=== PATIENT | female | born 2000 | race Caucasian/White ===

== ENCOUNTER 2023-10-26 19:16 | Outpatient (CLI) | payer MEDICAID, SELFPAY ==
[2023-10-26 19:32] VITALS: BP 134/90; PULSE 92; RESP 16; TEMP 36.8; O2SAT 95
--- NOTE | 2023-10-26 20:22 | PC.OBNST ---
NST Note NST Note Start: 10/26/23 19:27 Freq: ONCE Status: Active Protocol: Document 10/26/23 20:20 RRP (Rec: 10/26/23 20:22 RRP [id number]) NST Note 1 Para (# of births) 0 EDC 01/26/24 Gestational Age In Weeks & Days 26 Weeks & 6 Days High Risk Factors High Blood Pressure - Preexisting Patient Presented with Complaint(s) of Decreased movement,Other Other Complaints Pt had a panic attack and was concerned about baby Reactive Yes Appropriate for Gestational Age Yes NIRAV Nascimento RN Date 10/26/23 Reactive Yes Appropriate for Gestational Age Yes NIRAV Pinedo Date 10/26/23 OB NST charge Yes Complete NST Note via Write Note Yes The provider's electronic signature indicates the NST is reactive/appropriate for gestational age. *Note to provider: If an addendum is required, open the patient's chart and click on the note under the Nurse/Allied Health tab.
== END 2023-10-26 20:15 | disposition home or self-care (01) ==
LOC: OB OUT 19:16 → OB 19:16
PROVIDERS: Visit Provider Surgery
DX: O10.912 Unspecified pre-existing hypertension complicating pregnancy, second trimester (principal); O36.8120 Decreased fetal movements, second trimester, not applicable or unspecified; Z3A.26 26 weeks gestation of pregnancy
CPT/HCPCS: 59025; G0463

== ENCOUNTER 2023-12-24 16:17 | Outpatient (CLI) | payer BC, SELFPAY ==
[2023-12-24] VITALS (8 sets, daily range): BP systolic 123–135; BP diastolic 74–84; PULSE 88–97; RESP 14; TEMP 36.4; O2SAT 92–98
--- NOTE | 2023-12-24 17:17 | PC.OBNST ---
NST Note NST Note Start: 12/24/23 16:22 Freq: ONCE Status: Active Protocol: Document 12/24/23 16:22 [facility] (Rec: 12/24/23 17:17 [facility] Desktop) NST Note 1 Para (# of births) 0 EDC 12/26/23 Gestational Age In Weeks & Days 39 Weeks & 5 Days High Risk Factors High Blood Pressure - Preexisting Patient Presented with Complaint(s) of Decreased movement, Headache Other Complaints Pt in for DFM, headache and vision changes at 1430 today, BP normotensive, ESCAMILLA gone and vision normal Reactive Yes Appropriate for Gestational Age Yes NIRAV Morrison RN Date 12/24/23 Reactive Yes Appropriate for Gestational Age Yes NIRAV Kothari RN Date 12/24/23 OB NST charge Yes Complete NST Note via Write Note Yes The provider's electronic signature indicates the NST is reactive/appropriate for gestational age. *Note to provider: If an addendum is required, open the patient's chart and click on the note under the Nurse/Allied Health tab.
== END 2023-12-24 17:10 | disposition home or self-care (01) ==
LOC: OB CLI 16:19 → OB 16:21
PROVIDERS: PCP Family Medicine; Visit Provider Family Medicine
DX: O10.913 Unspecified pre-existing hypertension complicating pregnancy, third trimester (principal); O36.8130 Decreased fetal movements, third trimester, not applicable or unspecified; Z3A.39 39 weeks gestation of pregnancy
CPT/HCPCS: 59025; G0463

== ENCOUNTER 2024-01-16 12:30 | Outpatient (RCR) | payer BC, SELFPAY | END 2024-05-15 23:59 | disposition home or self-care (01) | PROVIDERS: PCP Family Medicine; Visit Provider Family Medicine | DX: O99.891 Other specified diseases and conditions complicating pregnancy (principal); M53.3 Sacrococcygeal disorders, not elsewhere classified; Z51.89 Encounter for other specified aftercare | CPT/HCPCS: 97110; 97112; 97140; 97161; 97530; 97535 ==

== ENCOUNTER 2024-01-20 15:57 | Inpatient (IN) | payer BC, SELFPAY ==
[2024-01-20] VITALS (8 sets, daily range): BP systolic 126–139; BP diastolic 60–84; PULSE 76–96; RESP 16; TEMP 36.4–36.8; O2SAT 98–100; BMI 38.0
--- NOTE | 2024-01-20 17:01 | PM.OBHPLI ---
OB - H&P: HPI Labor/Induction History of Present Illness Date Seen: 01/20/24 Chief Complaint: IOL for cHTN Chief complaint: IOL for CHTN Narrative: Malathi Fraser is a 23 year old female 1 para 0 at 39.1 weeks gestation by LMP consistent with 8wk US, who presents with IOL for chronic hypertension. Baseline labs in with elevated AST/ALT, improved on repeat (57/44) at 34.3wk gestation. She was started on labetalol 50mg BID for DBP 92, 91. Growth US on 12/31/2023 EFW 49th percentile. Doing well. No headache, vision changes, edema or RUQ pain. No loss of fluid or vaginal bleeding. Labs Blood type: B (+) positive Rubella: immune RPR/VDLR: nonreactive GBS status: negative HBsAG: negative Narrative: - Last Hgb: 11.9 - One Hour Glucose: 105 - Hep C: nonreactive - HIV: nonreactive - Treponema: negative - Gonorrhea: negative - Chlamydia: negative Review of Systems Status of ROS: Reports: 10 or more systems reviewed and unremarkable except as noted in History and below Narrative: Denies headache, visual changes, facial edema, epigastric/RUQ pain, N/V, dysuria, or diarrhea. Meds Home Medications and Allergies Home Medications ?Medication ?Instructions ?Recorded ?Confirmed ?Type aspirin 81 mg chewable tablet 81 mg PO DAILY 10/26/23 01/20/24 History cholecalciferol (vitamin D3) 25 1,000 unit PO DAILY 10/26/23 01/20/24 History mcg (1,000 unit) capsule vit 168-iron 27 mg-folic 1 cap PO 10/26/23 History acid 800 mcg-omega3 235 mg capsule (One-A-Day -1) labetalol 100 mg tablet 100 mg PO BID 01/20/24 01/20/24 History Allergies Allergy/AdvReac Type Severity Reaction Status Date / Time No Known Allergies Allergy Verified 01/20/24 16:48 OB - H&P: Exam Physical Exam: Vital signs: Temp Pulse Resp BP Pulse Ox 98.2 F 88 16 135/84 99 01/20/24 16:31 01/20/24 16:31 01/20/24 16:31 01/20/24 16:31 01/20/24 16:30 Narrative: Gen: alert, oriented, NAD Abd: gravid, nontender, soft to palpation between contractions Ext: warm, dry, without edema bilaterally Vaginal exam: 0 cm / 50 % / -2 / soft / posterior / vertex Membranes: intact FHT: Baseline: 145 bpm Variability: moderate Acceleration: present Decelerations: one variable noted Hoskins: Rare contractions every 7-16 min OB - Problem Based A/P Additional Plan (1) with 39 completed weeks gestation: Problem details: complicated by chronic hypertension and baseline elevation of AST/ALT. Status: Acute (2) Chronic hypertension affecting : Problem details: Stable cHTN, on labetalol 50mg BID with elevated AST/ALT in early . Status: Acute Plan: Continue home labetalol, repeat pre-E labs. No pre-eclampsia at this time. Plan #1- IOL for chronic hypertension - Admit & anticipate . - IOL with vaginal cytotec, transition to cytotec if [place] is favorable - Continuous monitoring: Category 1 tracing - Analgesia: prn - GBS status negative: prophylaxis not indicated # - Rh positive- RhoGAM unecessary - Baby [place] [place]
[2024-01-20 17:34] LABS: Basophils Absolute Auto 0.04 K/uL (0.00-0.30); Basophils Percent Auto 0.4 % (0.0-3.0); Eosinophils Absolute Auto 0.14 K/uL (0.00-0.50); Eosinophils Percent Auto 1.3 % (0.0-7.0); Hematocrit 35.1 % (33.0-51.0); Hemoglobin* 11.4 gm/dL (12.0-16.0); Immature Granulocytes Abs Auto 0.04 K/uL (0.00-0.30); Immature Granulocytes Pct Auto 0.4 %; Lymphocytes Absolute Auto 4.11 K/uL (0.90-2.90); Lymphocytes Percent Auto 39.2 % (20-44); Mean Corpuscular HGB Conc 33 gm/dL (32-36); Mean Corpuscular Hemoglobin 29 pg (26-34); Mean Corpuscular Volume 91 fL (80-100); Monocytes Percent Auto 4.4 % (0.0-11.0); Neutrophils Percent Auto 54.3 % (42.0-72.0); Platelet Count* 330 K/uL (140-440); RDW Coefficient of Variation % 13.7 % (11.5-15.5); Red Blood Count 3.88 m/uL (4.00-5.20); White Blood Count* 10.49 K/uL (4.50-11.00)
[2024-01-20 17:36] LABS: Slide Review Reflex No
[2024-01-20 17:52] LABS: Alanine Aminotransferase* 44 U/L (4-35); Aspartate Amino Transferase* 73 U/L (12-35); Blood Urea Nitrogen* 12 mg/dL (5-24); Creatinine* 0.4 mg/dL (0.5-1.5); Est. Creatinine Clearance* 196.83; Estimated Glomerular Filt Rate 143 ml/min
[2024-01-20] MEDS: miSOPROStoL 25 MCG/0.25 TABLET VAGINAL ×2 (18:00→21:04)
[2024-01-20 18:16] LABS: Total Protein Urine 9 mg/dL
[2024-01-20 18:17] LABS: Creatinine Urine 110.7 mg/dL; Protein Creatinine Ratio Urine 0.08 (0-0.19)
[2024-01-20] MEDS: LABETALOL HCL 100 MG TABLET 50 MG PO (21:04)
[2024-01-21] VITALS (216 sets, daily range): BP systolic 104–190; BP diastolic 53–108; PULSE 20–111; RESP 16–20; TEMP 36.4–37; O2SAT 82–100
[2024-01-21] MEDS: miSOPROStoL 25 MCG/0.25 TABLET VAGINAL (00:03)
[2024-01-21] MEDS: LABETALOL HCL 100 MG TABLET 50 MG PO ×2 (05:43→21:03)
[2024-01-21 05:49] LABS: Hematocrit 37.2 % (33.0-51.0); Hemoglobin* 12.3 gm/dL (12.0-16.0); Mean Corpuscular HGB Conc 33 gm/dL (32-36); Mean Corpuscular Hemoglobin 30 pg (26-34); Mean Corpuscular Volume 91 fL (80-100); Platelet Count* 309 K/uL (140-440); Red Blood Count 4.11 m/uL (4.00-5.20); White Blood Count* 10.68 K/uL (4.50-11.00)
[2024-01-21 05:50] LABS: Slide Review Reflex No
[2024-01-21 06:03] LABS: Alanine Aminotransferase* 46 U/L (4-35); Aspartate Amino Transferase* 60 U/L (12-35); Blood Urea Nitrogen* 12 mg/dL (5-24); Creatinine* 0.4 mg/dL (0.5-1.5); Est. Creatinine Clearance* 196.83; Estimated Glomerular Filt Rate 143 ml/min
--- NOTE | 2024-01-21 06:59 | P.OBPN_ITS ---
Subjective Time Seen by Provider: 06:50 Date Seen: 01/21/24 Narrative: Pt seen in routine center rounds this morning. She 23yo G1 at 39 2/7 wks being induced for chronic hypertension which has been controlled on labetalol 50mg bid. She has received 3 doses cytotec PV, most recent around midnight. Contractions currently increasing per patient, rates 6-7/10. Per RN and chart review, BP was elevated 0516 at 165/105 and repeated 4min later was 137/108. pt reports those were right during ctx. Next repeat 0530 141/79. The overnight MD had RN give her morning oral labetalol early at 0544. BP at 0548 was 178/106, RN reports this was right after cervical check and ctx. repeat was 157/105 and reports bp's since < 160/110 except one at 0647 186/98 but cuff was half on elbow and not appropriate position, cuff adjusted and repeat was 155/74. pt asymptomatic from BP standpoint. Objective Vital Signs: Last Vital Signs Temp 97.6 F 01/21/24 06:53 Pulse 63 01/21/24 06:53 Resp 18 01/21/24 06:53 BP 155/74 H 01/21/24 06:53 Pulse Ox 100 01/20/24 22:09 Pelvic Exam Comments: per RN, at 0542 4/50/-3 Contractions Monitor mode: External Contraction Frequency: q1-4min, most q1-2min Contraction intensity: Moderate Assessment Assessment: induction ongoing Status: Category l Heart Rate Baseline: 145 Manufacturing Operator Variability: Moderate (6-25) Monitor Accelerations: Present Monitor Decelerations: None Plan Plan: A/P: 23yo G1 at 39 2/7 wks being induced for chronic hypertension which has been controlled on labetalol 50mg bid. She has received 3 doses cytotec PV, most recent around midnight, contractions increasing 1. BP's overnight not sustained >/=15min above 160/110 so not currently meet criteria for Magnesium/IV BP meds. Will monitor closely and discussed with pt possibility of magnesium if met certain criteria. 2. Baseline elevated LFT's 1st trimester AST 79, ALT 53, repeat later in 57, 44. On admit to Center 73, 44, this morning 60, 46. Therefore stable overall. 3. GBS negative discussed plan to recheck 2 hours from last check, if changing on own, continue with expectant management, If ctxs decreasing or not changing, add pitocin per protocol. reviewed with pt, S.O. and RN. They did not have any ?'s.
[2024-01-21] MEDS: LACTATED RINGERS 1000 ML 1,000 ML 70 ML IV ×2 (08:06→19:19)
[2024-01-21] MEDS: MAGNESIUM IV 4 GM/100 ML PIGGYBACK IVPB (08:08)
[2024-01-21] MEDS: MAGNESIUM Infusion 40 GM/1,000 ML IV.SOLN IVPB (08:47)
[2024-01-21 14:24] LABS: Alanine Aminotransferase* 47 U/L (4-35); Aspartate Amino Transferase* 64 U/L (12-35); Blood Urea Nitrogen* 9 mg/dL (5-24); Creatinine* 0.4 mg/dL (0.5-1.5); Est. Creatinine Clearance* 196.83; Estimated Glomerular Filt Rate 143 ml/min
[2024-01-21 14:37] LABS: Magnesium* 4.7 mg/dL (1.5-2.6)
[2024-01-21 15:05] LABS: Hematocrit 38.2 % (33.0-51.0); Hemoglobin* 12.6 gm/dL (12.0-16.0); Mean Corpuscular HGB Conc 33 gm/dL (32-36); Mean Corpuscular Hemoglobin 30 pg (26-34); Mean Corpuscular Volume 90 fL (80-100); Platelet Count* 355 K/uL (140-440); Red Blood Count 4.26 m/uL (4.00-5.20); White Blood Count* 13.71 K/uL (4.50-11.00)
[2024-01-21 15:06] LABS: Slide Review Reflex No
[2024-01-21] MEDS: OXYTOCIN 30 unit/500 ML in NS 30 UNIT/500 ML BAG IVPB (16:04)
--- NOTE | 2024-01-21 18:21 | P.OBPN_ITS ---
Subjective Time Seen by Provider: 18:15 Date Seen: 01/21/24 Narrative: Pt breathing through contractions, lots of pressure with contractions. Wonders about pain control options. So far, tub helped her the most she says. RN reports pt was on hands on knees when BP was 190/103. RN then checked q2min BP's on Hands and Knees 155/79, 185/93, 144/77. She then moved to her side and was 128/71. No BP meds given. I noted pulse ox noted maternal oxygen 87%-99% at times. Discussed with RN. No r espiratory distress. using toe pulse ox and RN notes keeps coming off partially. Pulse ox levels documented show 87% then 99% back to back so suspect not accurate. Objective Vital Signs: Last Vital Signs Temp 98.1 F 01/21/24 18:13 Pulse 83 01/21/24 18:15 Resp 20 01/21/24 18:13 BP 143/90 H 01/21/24 18:15 Pulse Ox 93 01/21/24 18:16 Pelvic Exam Dilation (cm): 7 Effacement (%): 80 Station: -2 Comments: cervix stretchy, head not completely engaged in cervix. Contractions Monitor mode: External Contraction Frequency: q1-5min Contraction pattern: Irregular Contraction intensity: Strong/Firm Pitocin Rate (mU/min): 4 Assessment Status: Category l Heart Rate Baseline: 145 Monitor Accelerations: Present Monitor Decelerations: None Plan Plan: G1 at 39 2/7 wks gestation being admitted for chronic htn, on magnesium due to BP's in severe range. -s/p 3 cytotec, SROM's 11:45am, and now on pitocin. -Continue increase pitocin q15min per protocol discussed with RN -BP checks per protocol, not more then q5min. Pulse ox with vitals signs or if sxs. Discussed importance verifying if low as on magnesium at risk pulm edema. no appear to have currently -reviewed pain control options. she decided to get epidural -continue labs [id number]
[2024-01-21] MEDS: fentaNYL 250 MCG/5 ML inj 100 MCG EPIDURAL (19:09)
[2024-01-21] MEDS: LIDOCAINE 2% (PF) 5 ML VIAL EPIDURAL (19:10)
[2024-01-21] MEDS: ROPIVACAINE 0.2% 100 ml 100 ML 12 MG EPIDURAL (19:13)
--- NOTE | 2024-01-21 19:26 | P.ANBPRC_ITS ---
PFSH PFSH Social History What is your current living situation?: I presently have a place to live Problems where you live: no known problems In the past 12 months, utilities in danger of being shut off: no In the past 12 mos, have been you worried that your food would run out before you had money to buy more?: never true In the past 12 mos, the food you bought just didn't last and you didn't have money to buy more?: never true Smoking Status: Never smoker How often does anyone, including family, friends and others, physically hurt you : never How often does anyone, including family, friends and others, insult or talk down to you: never How often does anyone, including family, friends and others, threaten you with harm: never How often does anyone, including family, friends and others, scream or curse at you: never Meds Home Medications and Allergies Home Medications ?Medication ?Instructions ?Recorded ?Confirmed ?Type aspirin 81 mg chewable tablet 81 mg PO DAILY 10/26/23 01/20/24 History cholecalciferol (vitamin D3) 25 1,000 unit PO DAILY 10/26/23 01/20/24 History mcg (1,000 unit) capsule vit 168-iron 27 mg-folic 1 cap PO 10/26/23 History acid 800 mcg-omega3 235 mg capsule (One-A-Day -1) labetalol 100 mg tablet 100 mg PO BID 01/20/24 01/20/24 History Allergies Allergy/AdvReac Type Severity Reaction Status Date / Time No Known Allergies Allergy Verified 01/20/24 16:48 Results Labs Labs: Laboratory Results - last 24 hr 01/21/24 01/21/24 05:39 14:03 WBC 10.68 13.71 H RBC 4.11 4.26 Hgb 12.3 12.6 Hct 37.2 38.2 MCV 91 90 MCH 30 30 MCHC 33 33 Plt Count 309 355 BUN 12 9 Creatinine 0.4 L 0.4 L Estimated Creat Clear 196.83 196.83 Estimated GFR 143 143 Magnesium 4.7 H* AST 60 H 64 H ALT 46 H 47 H Vital Signs Vital Signs: Last Vital Signs Temp 98.1 F 01/21/24 18:13 Pulse 94 01/21/24 19:22 Resp 20 01/21/24 18:13 BP 126/73 01/21/24 19:22 Pulse Ox 98 01/21/24 19:23 Weight: 103.51 kg Height: 165.1 cm Anesthesia Procedures Epidural Insertion Patient Location: OB Start Time: 18:30 Stop Time: Start Date: 01/21/24 Stop Date: 01/21/24 Reason for Block: primary anesthetic Patient Position: sitting Performed By: Freedom Gamble Preanesthetic Checklist: IV checked, risks and benefits discussed, surgical consent, monitors and equipment checked, pre-op evaluation, timeout performed and anesthesia consent Prep: chlorhexidine gluconate Monitoring: blood pressure monitoring, senior software development engineer, continuous pulse oximetry and heart rate Approach: midline Vertebral Space: lumbar (1-5) Needle Type: Tuohy needle Injection Technique: continuous catheter Needle gauge: 17 Needle Length (cm): 10 cm Needle Insertion Depth (cm): 6 Catheter Gauge: 19 Catheter Type: multi-orifice Catheter at skin depth (cm): 12 Test Dose Result: negative and lidocaine 1.5% with epinephrine 1 to 200,000 Events: other
[2024-01-21 20:29] LABS: Hematocrit 38.6 % (33.0-51.0); Hemoglobin* 12.6 gm/dL (12.0-16.0); Mean Corpuscular HGB Conc 33 gm/dL (32-36); Mean Corpuscular Hemoglobin 30 pg (26-34); Mean Corpuscular Volume 91 fL (80-100); Platelet Count* 353 K/uL (140-440); Red Blood Count 4.26 m/uL (4.00-5.20); White Blood Count* 16.47 K/uL (4.50-11.00)
[2024-01-21 20:32] LABS: Slide Review Reflex No
[2024-01-21 20:37] LABS: Creatinine* 0.4 mg/dL (0.5-1.5); Est. Creatinine Clearance* 196.83; Estimated Glomerular Filt Rate 143 ml/min
[2024-01-21 20:38] LABS: Alanine Aminotransferase* 45 U/L (4-35); Aspartate Amino Transferase* 67 U/L (12-35); Blood Urea Nitrogen* 8 mg/dL (5-24)
[2024-01-21 20:45] LABS: Magnesium* 5.2 mg/dL (1.5-2.6)
--- NOTE | 2024-01-21 20:50 | PM.OBPNL ---
Subjective Time Seen by Provider: 20:19 Date Seen: 01/21/24 Narrative: pt received epidural and is comfortable. Objective Vital Signs: Last Vital Signs Temp 97.8 F 01/21/24 20:24 Pulse 94 01/21/24 20:48 Resp 16 01/21/24 20:24 BP 126/70 01/21/24 20:48 Pulse Ox 96 01/21/24 20:48 Pelvic Exam Dilation (cm): 9.5 Effacement (%): 100 Station: 0 Contractions Monitor mode: External Contraction Frequency: q1-3 Contraction pattern: Regular Contraction intensity: Strong/Firm Pitocin Rate (mU/min): 11 Assessment Assessment: active labor Station: 0 Amniotic Membrane Status: SROM Status: Category l Heart Rate Baseline: 140 Monitor Accelerations: Present Monitor Decelerations: Variable Plan Plan: Continue with expectant management, will start pushing once complete. Updated FP peds provider Dr Leon
[2024-01-21] MEDS: LIDOCAINE 1 % PF 30 ML INJECTION (22:23)
--- NOTE | 2024-01-21 23:29 | W.PM.VAGDEL1 ---
Procedure Delivery date: 01/21/24 Procedure Done: Global Procedure Details: The patient is a 23 year-old admitted on 01/20/24 at 39 Weeks, 1 Days gestation for induction due to chronic hypertension controlled on labetalol 50mg bid.? Cervical exam on admission was closed and high with membranes intact in vertex presentation.? She was not feeling any regular contractions.? heart rate monitor demonstrated a category 1 tracing.? She received 3 doses vaginal cytotec for cervical ripening. BP's were in severe range and so magnesium was started morning of 01/21/24. She appeared to be transitioning into labor. SROM occurred at 1145 on 01/21/24 with clear fluid. Labor was augmented with pitocin. ? Labor Analgesia:? Epidural ? Pitocin:? Yes ? Labor onset:? 10:15am ? Complete:? 2112 ? Pushing:? 2113 ? heart tones during second stage were 140-150's with variables with pushing. ? At 2217 a viable male infant delivered in vertex presentation over intact perineum via spontaneous vaginal delivery.? Infant was placed on maternal abdomen.? Cord was clamped and cut after a 60 second delay.? Nose and mouth were bulb suctioned.? weight 7#7oz.? 7 at 1 minute and 9 at 5 minutes.? Shoulder dystocia: no.? Nuchal cord: no. ? Active management of placenta performed. Placenta delivered spontaneously and complete at 2237 with a 3 vessel cord with large gush of blood immediately after placenta, RN performed fundal massage and reported fundus firm and no further significant bleeding appearing from uterus. ? Lacerations:? 2nd perineal midline laceration that telescoped into left inferior vaginal side wall. This laceration had persistent bleeding making repair initially difficult. 3-0 Vicryl used to repair and bleeding resolved with suturing. Area double checked and hemostatic. Superficial bilateral periurethral, hemostatic with pressure. Inferior and slightly left of urethra was small laceration with persistent bleeding and repaired with 4-0 vicryl and became hemostatic. Mother and infant were stable after delivery. ? Blood loss: EBL 400. Blood loss measurement type: EBL ? Sponge and needles counts are correct. Events: Chronic Hypertension Intrapartal Events: Labor Induction Delivery augmentation: pitocin Delivery monitor: external FHT Route of delivery: Infant Gender: Male presentation: vertex Placental Delivery Description: Spontaneous Cord Description: 3 Vessels
[2024-01-22] VITALS (26 sets, daily range): BP systolic 101–125; BP diastolic 58–85; PULSE 64–109; RESP 12–20; TEMP 36.3–36.8; O2SAT 94–100
[2024-01-22] MEDS: IBUPROFEN 600 MG TABLET PO ×4 (01:52→21:04)
[2024-01-22 02:05] LABS: Hematocrit 37.1 % (33.0-51.0); Hemoglobin* 12.1 gm/dL (12.0-16.0); Mean Corpuscular HGB Conc 33 gm/dL (32-36); Mean Corpuscular Hemoglobin 29 pg (26-34); Mean Corpuscular Volume 90 fL (80-100); Platelet Count* 383 K/uL (140-440); Red Blood Count 4.11 m/uL (4.00-5.20); White Blood Count* 20.62 K/uL (4.50-11.00)
[2024-01-22 02:09] LABS: Slide Review Reflex No
[2024-01-22 02:19] LABS: Alanine Aminotransferase* 43 U/L (4-35); Aspartate Amino Transferase* 60 U/L (12-35); Blood Urea Nitrogen* 8 mg/dL (5-24); Creatinine* 0.5 mg/dL (0.5-1.5); Est. Creatinine Clearance* 157.46; Estimated Glomerular Filt Rate 135 ml/min
[2024-01-22] MEDS: MAGNESIUM Infusion 40 GM/1,000 ML IV.SOLN IVPB (03:57)
[2024-01-22] MEDS: OXYTOCIN 30 unit/500 ML in NS 30 UNIT/500 ML BAG 300 UNIT IVPB (06:08)
[2024-01-22] MEDS: TRANEXAMIC ACID 100 MG/ML INJ 1000 MG IV (06:09)
[2024-01-22 06:17] LABS: Hemoglobin* 10.8 gm/dL (12.0-16.0); Platelet Count* 367 K/uL (140-440)
[2024-01-22] MEDS: LACTATED RINGERS 1000 ML 1,000 ML 75 ML IV ×2 (06:18→20:04)
[2024-01-22 06:25] LABS: Alanine Aminotransferase* 38 U/L (4-35); Aspartate Amino Transferase* 52 U/L (12-35); Creatinine* 0.5 mg/dL (0.5-1.5); Est. Creatinine Clearance* 157.46; Estimated Glomerular Filt Rate 135 ml/min
[2024-01-22] MEDS: CARBOPROST TROMETHAMINE 250 MCG/ML INJ IM (06:25)
[2024-01-22] MEDS: LOPERAMIDE HCL 2 MG CAPSULE 4 MG PO (06:27)
[2024-01-22] MEDS: miSOPROStoL 800 MCG/4 TABLET PR (06:31)
[2024-01-22] MEDS: fentaNYL 100 MCG/2 ML inj 50 MCG IVP ×2 (06:33→06:35)
[2024-01-22 06:55] LABS: Prothrombin Time 13.8 Seconds
[2024-01-22 06:56] LABS: Partial Thromboplastin Time* 28 Seconds (23-33)
--- NOTE | 2024-01-22 07:15 | PM.OBPNVD1 ---
OB - PN:Subj Subjective Time Seen by Provider: 07:15 Date Seen: 01/22/24 Interval history: I was called to evaluate the patient at 6:10 AM for post- hemorrhage. Patient was noted to have a large clot ~550g in her pad. I was contacted by nursing, directed to give rectal cytotec. Bleeding continued, agreed to give TXA and IV pitocin. Bleeding continued, and massive transfusion protocol was initiated. Patient also received Hemabate prior to my arrival. Upon my arrival, patient was alert and responsive, but feeling dizzy/lightheaded. BP was 1teens/80s, HR 100. 1 unit PRBC was being hung. Patient received 100 mcg of IV fentanyl, and manual exploration of the vagina was completed with return of several large clots and what appeared to be tissue/membranes. This brought QBL to ~2000 g. Subsequently fundus firm without active bleeding. Code purple was called, and OR was prepared for suction D&C. Patricia Mckenzie and Tara arrived to assume care. See OP note. OB - PN: Obj Exam Physical Exam: Vital signs: Temp Pulse Resp BP Pulse Ox O2 Del Method 97.5 F L 79 18 116/80 98 Room Air 01/22/24 02:05 01/22/24 06:46 01/22/24 06:46 01/22/24 06:46 01/22/24 06:46 01/22/24 06:46 Narrative: General appearance: Pale adult female. Alert and oriented. Lying back in hospital bed. HEENT: EOMI, no conjunctival injection or discharge. MMM. Neck: Supple. CV: Appears well-perfused Pulm: Breathing comfortably on room air. Abdomen: Soft, fundus tender. Fundus palpated at the umbilicus and firm. MSK: Moving all extremities. Ext: Warm and well-perfused. Skin: No rashes appreciated over exposed skin. Neuro: No focal deficits. OB - PN: Obj Data Labs Labs: Laboratory Results - last 24 hr 01/21/24 01/21/24 01/22/24 14:03 20:02 02:00 WBC 13.71 H 16.47 H 20.62 H RBC 4.26 4.26 4.11 Hgb 12.6 12.6 12.1 Hct 38.2 38.6 37.1 MCV 90 91 90 MCH 30 30 29 MCHC 33 33 33 Plt Count 355 353 383 INR APTT BUN 9 8 8 Creatinine 0.4 L 0.4 L 0.5 Estimated Creat Clear 196.83 196.83 157.46 Estimated GFR 143 143 135 Magnesium 4.7 H* 5.2 H* 5.0 H* AST 64 H 67 H 60 H ALT 47 H 45 H 43 H Crossmatch (AHG) 01/22/24 06:08 WBC RBC Hgb 10.8 L Hct MCV MCH MCHC Plt Count 367 INR 1.00 APTT 28 BUN Creatinine 0.5 Estimated Creat Clear 157.46 Estimated GFR 135 Magnesium AST 52 H ALT 38 H Crossmatch (AHG) See Detail OB - PN: A/P Delivery Assessment and Plan (1) with 39 completed weeks gestation: Problem details: complicated by chronic hypertension and baseline elevation of AST/ALT. S/p . Second degree laceration. Status: Acute (2) Chronic hypertension affecting : Problem details: Stable cHTN, on labetalol 50mg BID with elevated AST/ALT in early . Status: Acute (3) Severe pre-eclampsia: Problem details: Started on IV magnesium for severe range blood pressures. Status: Acute Assessment and Plan: - Continue magnesium until 24 hours post- - Post- blood pressures have been normal, continue to monitor - LFTs downtrending after delivery (4) hemorrhage: Problem details: Delayed PPH. Thought d/t retained placenta. S/p suction D&C. Status: Acute Assessment and Plan: - PROCESSING ARCHIVIST consulted - Hgb 10.8 at 0600, coags WNL - Received 2 units PRBC Plan day: 1 Plan: routine care Comments: Anticipate discharge pending clinical stablility.
[2024-01-22 07:23] LABS: Fibrinogen* 594 mg/dL (200-450)
--- NOTE | 2024-01-22 07:48 | W.ANESCHARGE ---
Anesthesia Charges Start Date/Time Anesthesia Start Date: 01/22/24 Anesthesia Start Time: 06:52 Stop Date/Time Anesthesia Stop Date: 01/22/24 Anesthesia Stop Time: 07:42 Summary Emergency: FRONT LOADER RESIDENTIAL DRIVER
--- NOTE | 2024-01-22 07:52 | P.GYNPRC_ITS ---
Procedure Note Time Seen by Provider: 07:00 Date of procedure: 01/22/24 Will [facility] bill your pro fee for this procedure?: Yes Pre-op diagnosis: Immediate hemorrhage suspected retained products of conception, CHTN with superimposed preeclampsia with severe features Post-op diagnosis: Immediate hemorrhage suspected retained products of conception, CHTN with superimposed preeclampsia with severe features Procedure: Ultrasound guided suction curettage Anesthesia: GETA Complications: None Surgeon: Cruz Pacheco MD System Configuration Specialist: Daina Mckenzie Estimated blood loss (mL): 10 Urine Output (mL): 500 Pathology: specimen obtained, sent to pathology (Endometrial curettings suspected products of conception-retained placental tissue) Condition: stable Disposition: PACU Findings: Normal external genitalia, bimanual exam: well contracted uterus of about 15- 18cm. Speculum exam: evidence of laceration repair on the left posterior vaginal wall, 2 small periurethral lacerations hemostatic. Small hematoma noted of the left vaginal wall, superficial and not expanding. Cervix dilated, no evidence of cervical laceration. Bladder was catheterized and about 50mmL of clear urine noted. Bedside ultrasound:Heterogenous endometrial lining, hyperechoic foci at the uterine fundus as well as at the anterior lower uterine segment. Procedure Description: As the incoming OB provider personal development educator today 01/22/24, I was notified by Dr. Nj Vidal (personal development educator physician until 7am today) that she had been called in to evaluate a family medicine patient who had delivered and had been identified to have a hemorrhage. Upon arrival I met Dr. Leon at OR [address] as well as Dr. Mckenzie who was about to go in the room with the bedside US. Dr. Leon gave us a sign out about the patient. We were told she had a last night 01/21/24 at around 10:30pm, she was diagnosed with Preeclampsia with severe features so she was currently receiving Magnesium Sulfate infusion. Fam [facility] provider was called in to evaluate patient after passage of a large blood clot at around 5am today, with an EBL of 2000mL so far. Dr. Leon had called cuco oleary [facility] protocol to be started. Patient was at OR and was intubated, she had just completed a bimanual exam and had passage of a large blood clot with some placental tissue noted. She had already received Cytotec, Hemabate, Oxytocin and 1 g of TXA. Patient had also received 1 unit of PRBC. Bleeding at the moment was stable and care at OR was handed off to me. Patient was noted to be under GETA and in the dorsal lithotomy position with Juan type stirrups. The patient was prepared and draped in the normal sterile fashion. An exam under anesthesia with findings as above. Her bladder was emptied with in-out catheter. A bivalved speculum was inserted in the posterior aspect of the vagina. Ring forceps utilized to grasp the anterior lip of cervix. A 12 mm suction curette was advanced to the uterine fundus under bedside ultrasound guidance. The suction was then started. The products of conception were evacuated with the curette rotating on the outward movement, multiple of these sweeps completed until bedside US confirmed a homogenous and thin endometrial lining. Utilizing 2 ring forceps the cervix was evaluated and no cervical lacerations noted. Perineal laceration, noted to be slightly superficially disrupted due to speculum manipulation and utilizing Vicryl 3-0 2 figure of 8 stitches were completed and hemostasis secured. No evidence of any expanding hematoma tissue. The patient tolerated the procedure well. Instrument and sponge counts were correct x2. Patient was taken to the PACU in a stable condition. Since it had passed an hour after her first dose of TXA, a second dose of 1g of TXA was given at OR, a second unit of PRBCs from MTP was also given at OR, we also ordered for a 1 dose of 2g of IV Ancef to be given at the start of procedure. Debrief completed and endometrial curettings as well as Dr. Leon's tissue will be sent to pathology. Labs collected at 6 am, showed a normal fibrinogen level. At this time MTP was asked to be stopped. Patient will continue with Magnesium Sulfate infusion under the care of our family medicine colleagues, will remain vigilant for any new episodes of bleeding, please notify OB if there are any significant changes.
--- NOTE | 2024-01-22 07:52 | W.ANESCHARGE ---
Anesthesia Charges Start Date/Time Anesthesia Start Date: 01/22/24 Anesthesia Start Time: 06:52 Stop Date/Time Anesthesia Stop Date: 01/22/24 Anesthesia Stop Time: 07:42 Summary Emergency: MDA
[2024-01-22] MEDS: 0.9 % SODIUM CHLORIDE 500 ML IV (08:05)
[2024-01-22 08:37] LABS: Hematocrit 34.8 % (33.0-51.0); Hemoglobin* 11.4 gm/dL (12.0-16.0); Mean Corpuscular HGB Conc 33 gm/dL (32-36); Mean Corpuscular Hemoglobin 29 pg (26-34); Mean Corpuscular Volume 90 fL (80-100); Platelet Count* 275 K/uL (140-440); Red Blood Count 3.88 m/uL (4.00-5.20); White Blood Count* 17.29 K/uL (4.50-11.00)
[2024-01-22 08:38] LABS: Slide Review Reflex No
[2024-01-22] MEDS: LABETALOL HCL 100 MG TABLET 50 MG PO ×2 (08:46→21:04)
[2024-01-22] MEDS: DOCUSATE SODIUM 100 MG CAPSULE PO (08:46)
[2024-01-22 08:53] LABS: Alanine Aminotransferase* 30 U/L (4-35); Aspartate Amino Transferase* 45 U/L (12-35); Blood Urea Nitrogen* 8 mg/dL (5-24); Creatinine* 0.4 mg/dL (0.5-1.5); Est. Creatinine Clearance* 196.83; Estimated Glomerular Filt Rate 143 ml/min
[2024-01-22 08:58] LABS: Magnesium* 4.6 mg/dL (1.5-2.6)
--- NOTE | 2024-01-22 10:12 | PM.ANPOST ---
Post Anesthesia Note Post Anesthesia Note Patient seen: Inpatient Respiratory Status: adequate Cardiovascular Status: adequate Mental Status: baseline Pain: adequate Temp: baseline Anesthetic awareness: N/A Complications: none Follow care: none
[2024-01-22 14:03] LABS: Mean Corpuscular HGB Conc 33 gm/dL (32-36); Mean Corpuscular Hemoglobin 30 pg (26-34); Mean Corpuscular Volume 89 fL (80-100); Platelet Count* 282 K/uL (140-440); Red Blood Count 3.71 m/uL (4.00-5.20); White Blood Count* 17.33 K/uL (4.50-11.00)
[2024-01-22 14:05] LABS: Slide Review Reflex No
[2024-01-22 14:42] LABS: Creatinine* 0.4 mg/dL (0.5-1.5); Est. Creatinine Clearance* 196.83; Estimated Glomerular Filt Rate 143 ml/min
[2024-01-22 14:43] LABS: Alanine Aminotransferase* 35 U/L (4-35); Aspartate Amino Transferase* 51 U/L (12-35); Blood Urea Nitrogen* 8 mg/dL (5-24)
[2024-01-22 20:06] LABS: Hematocrit 32.9 % (33.0-51.0); Hemoglobin* 10.9 gm/dL (12.0-16.0); Mean Corpuscular HGB Conc 33 gm/dL (32-36); Mean Corpuscular Hemoglobin 30 pg (26-34); Mean Corpuscular Volume 90 fL (80-100); Platelet Count* 302 K/uL (140-440); Red Blood Count 3.67 m/uL (4.00-5.20); White Blood Count* 15.58 K/uL (4.50-11.00)
[2024-01-22 20:14] LABS: Slide Review Reflex No
[2024-01-22 20:23] LABS: Alanine Aminotransferase* 40 U/L (4-35); Aspartate Amino Transferase* 68 U/L (12-35); Blood Urea Nitrogen* 8 mg/dL (5-24); Creatinine* 0.5 mg/dL (0.5-1.5); Est. Creatinine Clearance* 157.46; Estimated Glomerular Filt Rate 135 ml/min
[2024-01-22 22:01] LABS: Rapid Plasma Reagin (RPR) Non Reactive (Non Reactive)
[2024-01-22] MEDS: ACETAMINOPHEN 500 MG TABLET 1000 MG PO (22:07)
[2024-01-23] VITALS (7 sets, daily range): BP systolic 101–138; BP diastolic 65–87; PULSE 70–89; RESP 16; TEMP 36.7–37.2; O2SAT 96–99
--- NOTE | 2024-01-23 07:38 | PM.OBPNVD1 ---
OB - PN:Subj Subjective Date Seen: 01/23/24 Interval history: Doing well this morning. Bleeding significantly decreased following D&C yesterday. No dizziness or lightheadedness. Urinating without issue. Pain controlled with tylenol and ibuprofen. Cramping during but no abdominal pain otherwise. No headaches or RUQ pain. OB - PN: Obj Exam Physical Exam: Vital signs: Temp Pulse Resp BP Pulse Ox O2 Del Method 98.4 F 80 16 116/72 98 Room Air 01/23/24 05:23 01/23/24 05:23 01/23/24 05:23 01/23/24 05:23 01/23/24 05:23 01/23/24 05:23 Constitutional: Constitutional: no acute distress Routine Respiratory Exam: Respiratory: Present CTA bilaterally Routine Cardiovascular Exam: Cardiovascular: Present RRR; Absent murmur Routine Abdominal Exam: Abdominal: Present soft Fundus: Present firm OB - PN: Obj Data Labs Labs: Laboratory Results - last 24 hr 01/20/24 01/22/24 01/22/24 17:21 06:08 08:28 WBC 17.29 H RBC 3.88 L Hgb 11.4 L Hct 34.8 MCV 90 MCH 29 MCHC 33 Plt Count 275 BUN 8 Creatinine 0.4 L Estimated Creat Clear 196.83 Estimated GFR 143 Magnesium 4.6 H* AST 45 H ALT 30 RPR Screen Non Reactive Crossmatch (AHG) See Detail 01/22/24 01/22/24 13:58 19:58 WBC 17.33 H 15.58 H RBC 3.71 L 3.67 L Hgb 11.0 L 10.9 L Hct 33.0 32.9 L MCV 89 90 MCH 30 30 MCHC 33 33 Plt Count 282 302 BUN 8 8 Creatinine 0.4 L 0.5 Estimated Creat Clear 196.83 157.46 Estimated GFR 143 135 Magnesium AST 51 H 68 H ALT 35 40 H RPR Screen Crossmatch (AHG) OB - PN: A/P Delivery Assessment and Plan (1) with 39 completed weeks gestation: Problem details: complicated by chronic hypertension and baseline elevation of AST/ALT. S/p . Second degree laceration. Status: Acute (2) Chronic hypertension affecting : Problem details: Stable cHTN, on labetalol 50mg BID with elevated AST/ALT in early . Status: Acute (3) Severe pre-eclampsia: Problem details: Started on IV magnesium for severe range blood pressures. Status: Acute (4) hemorrhage: Problem details: Delayed PPH. Thought d/t retained placenta. S/p suction D&C. Status: Acute Plan day: 2 Plan: routine care Comments: Pre-Eclampsia with Severe Features Magnesium has been off since last evening, pressures well controlled. LFTs stable, although mildly elevated which is her baseline. Delayed PPH VSS. Hgb stable - last checked on 01/21 in PM. Will monitor clinically for now - can recheck labs if change in vitals or symptoms. Plan to monitor until tomorrow, then likely discharge on 01/24/24.
[2024-01-23] MEDS: DOCUSATE SODIUM 100 MG CAPSULE PO (10:11)
[2024-01-23] MEDS: LABETALOL HCL 100 MG TABLET 50 MG PO ×2 (10:12→21:07)
[2024-01-23] MEDS: IBUPROFEN 600 MG TABLET PO (18:20)
[2024-01-23] MEDS: LANOLIN CREAM 1 APPLIC TOPICAL (18:21)
[2024-01-24] VITALS (9 sets, daily range): BP systolic 114–149; BP diastolic 73–101; PULSE 83–96; RESP 16; TEMP 36.5–37.2; O2SAT 96–98
[2024-01-24] MEDS: ACETAMINOPHEN 500 MG TABLET 1000 MG PO ×2 (02:37→08:47)
[2024-01-24] MEDS: IBUPROFEN 600 MG TABLET PO ×2 (04:08→21:07)
[2024-01-24 08:19] LABS: Hematocrit 29.3 % (33.0-51.0); Hemoglobin* 9.5 gm/dL (12.0-16.0); Mean Corpuscular HGB Conc 32 gm/dL (32-36); Mean Corpuscular Hemoglobin 30 pg (26-34); Mean Corpuscular Volume 91 fL (80-100); Platelet Count* 259 K/uL (140-440); Red Blood Count 3.21 m/uL (4.00-5.20)
[2024-01-24 08:25] LABS: Slide Review Reflex No
[2024-01-24 08:34] LABS: Aspartate Amino Transferase* 226 U/L (12-35)
[2024-01-24 08:35] LABS: Alanine Aminotransferase* 71 U/L (4-35)
[2024-01-24] MEDS: DOCUSATE SODIUM 100 MG CAPSULE PO (08:47)
[2024-01-24] MEDS: LABETALOL HCL 100 MG TABLET 50 MG PO (08:47)
--- NOTE | 2024-01-24 09:44 | PM.OBPNVD1 ---
OB - PN:Subj Subjective Time Seen by Provider: 08:00 Date Seen: 01/24/24 Interval history: Patient felt chilled this morning upon waking and felt overall unwell. This improved with tylenol. Vitals were stable. Bleeding has been appropriate. Patient is having increased swelling in her leg and has noted increased pain with fundal assessments. No fevers. She is working on breast feeding-- breasts are quite tender (notably baby has 2 teeth that have caused trauma to breast). She has been off magnesium for >24 hours. She denies any RUQ pain, headache, vision changes. She is tolerating PO intake well, voiding without difficulty. Patient comments OB post-: pain well controlled and tolerating diet infant status: and doing well feeding status: breast and bottle feeding (supplementing with some bottle feedings) OB - PN: Obj Exam Physical Exam: Vital signs: Temp Pulse Resp BP Pulse Ox O2 Del Method 98.4 F 96 16 126/81 97 Room Air 01/24/24 08:36 01/24/24 08:36 01/24/24 08:36 01/24/24 08:36 01/24/24 08:36 01/24/24 03:58 Constitutional: Constitutional: no acute distress Routine HEENT Exam: Head: Present atraumatic and normal inspection Routine Neck Exam: Neck: Present full ROM Detailed Neck Exam: Thyroids: Thyroid: Present normal Routine Respiratory Exam: Respiratory: Present CTA bilaterally Routine Cardiovascular Exam: Cardiovascular: Present RRR, S1 and S2; Absent murmur Routine Abdominal Exam: Abdominal: Present soft Fundus: Present firm Comments: slight tenderness of fundus. Detailed Abdominal Exam: Comments: no ruq tenderness Routine Extremities Exam: Extremities: Present full ROM, pulses intact and pedal edema (1+ edema bilaterally); Absent calf tenderness Routine Back/Spine/Pelvis Exam: Back/Spine: Present full ROM Routine Skin Exam: Skin: Present warm Routine Neurological Exam: Neurological: Present alert and oriented X3 Routine Psychiatric Exam: Psychiatric: Present normal affect and normal thought process OB - PN: Obj Data Labs Labs: Laboratory Results - last 24 hr 01/24/24 08:14 WBC 10.20 RBC 3.21 L Hgb 9.5 L Hct 29.3 L MCV 91 MCH 30 MCHC 32 Plt Count 259 AST 226 H ALT 71 H OB - PN: A/P Delivery Assessment and Plan (1) with 39 completed weeks gestation: Problem details: complicated by chronic hypertension and baseline elevation of AST/ALT. S/p . Second degree laceration. Status: Acute (2) Chronic hypertension affecting : Problem details: Stable cHTN, on labetalol 50mg BID with elevated AST/ALT in early . Status: Acute Assessment and Plan: - one elevated BP this morning, continue to monitor bp closely (3) Severe pre-eclampsia: Problem details: Started on IV magnesium for severe range blood pressures. Completed 24 hours . Status: Acute (4) hemorrhage: Problem details: Delayed PPH. Thought d/t retained placenta. S/p suction D&C. Status: Acute Assessment and Plan: - hemoglobin dropped to 9.5 from 10.9 on last check. Asymptomatic. Recheck this evening. (5) Uterine tenderness: Problem details: Patient has mild uterine tenderness. No fevers. Vitals stable. Patient is high risk for endometritis given her D&C, retained placenta. WBC count improved from last check. Status: Acute Assessment and Plan: - monitor for fever - monitor for purulent discharge - if either or worsening tenderness would have low threshold to start abx (6) Elevated LFTs: Problem details: Baseline moderate fatty liver disease. ALT early 79, AST 53. Unfortunately, AST this morning was 226, significantly higher than last check. Discussed with Perinatology ,recommend viral serologies and monitoring q12 hours until improving. Did not recommend restarting magnesium. Status: Acute Assessment and Plan: - recheck cmp and cbc at 1700. - if worsening, consider imaging liver vs transfer for GI consultation Plan - Given elevated LFTs, worsening anemia-- will need to stay additional day for monitoring. Continue routine cares. Plan day: 3 Plan: routine care
[2024-01-24 10:12] LABS: Creatinine* 0.4 mg/dL (0.5-1.5); Est. Creatinine Clearance* 196.83; Estimated Glomerular Filt Rate 143 ml/min
[2024-01-24 17:10] LABS: Basophils Absolute Auto 0.04 K/uL (0.00-0.30); Basophils Percent Auto 0.4 % (0.0-3.0); Eosinophils Absolute Auto 0.33 K/uL (0.00-0.50); Eosinophils Percent Auto 3.2 % (0.0-7.0); Hematocrit 29.7 % (33.0-51.0); Hemoglobin* 9.6 gm/dL (12.0-16.0); Immature Granulocytes Abs Auto 0.07 K/uL (0.00-0.30); Immature Granulocytes Pct Auto 0.7 %; Lymphocytes Absolute Auto 3.25 K/uL (0.90-2.90); Lymphocytes Percent Auto 31.2 % (20-44); Mean Corpuscular HGB Conc 32 gm/dL (32-36); Mean Corpuscular Hemoglobin 30 pg (26-34); Mean Corpuscular Volume 92 fL (80-100); Monocytes Percent Auto 3.7 % (0.0-11.0); Neutrophils Absolute Auto 6.33 K/uL (1.7-7.0); Neutrophils Percent Auto 60.8 % (42.0-72.0); Platelet Count* 317 K/uL (140-440); RDW Coefficient of Variation % 14.1 % (11.5-15.5); Red Blood Count 3.22 m/uL (4.00-5.20); White Blood Count* 10.41 K/uL (4.50-11.00)
[2024-01-24 17:21] LABS: Slide Review Reflex No
[2024-01-24 17:26] LABS: Albumin* 3.7 g/dL (3.3-5.0); Chloride* 105 mmol/L (96-114)
[2024-01-24 17:27] LABS: Potassium* 3.8 mmol/L (3.6-5.1); Sodium* 136 mmol/L (135-149)
[2024-01-24 17:29] LABS: Alkaline Phosphatase* 120 U/L (40-150); Anion Gap 8 mEq/L (7-15); Aspartate Amino Transferase* 303 U/L (12-35); Bilirubin Total* 0.1 mg/dL (0.1-1.5); Carbon Dioxide* 23 mmol/L (20-32); Creatinine* 0.4 mg/dL (0.5-1.5); Est. Creatinine Clearance* 196.83; Estimated Glomerular Filt Rate 143 ml/min; Total Protein* 6.9 g/dL (6.0-8.3)
[2024-01-24 17:30] LABS: Alanine Aminotransferase* 106 U/L (4-35); Blood Urea Nitrogen* 7 mg/dL (5-24); Calcium* 9.3 mg/dL (8.4-10.6); Glucose* 111 mg/dL (60-115)
--- NOTE | 2024-01-24 17:46 | CRLHL7_ITS ---
For Patients: As a result of the Century Cures Act, medical imaging exams and procedure reports are released immediately into your electronic medical record. You may view this report before your referring provider. If you have questions, please contact your health care provider. INDICATION: Elevated liver labs COMPARISON: None TECHNIQUE: Ultrasound abdomen limited. Real time fernández scale imaging and color Doppler analysis was performed of the abdomen. FINDINGS: Liver: The liver is increased in size measuring 20.5 cm in length. Diffusely increased echogenicity consistent with steatosis. No significant nodular hepatic contour. No focal liver lesions identified. Gallbladder: No stones or sludge. No wall thickening or pericholecystic fluid. Patient is mildly tender with palpation over the right upper quadrant. Bile ducts: The common bile duct measures 3 mm in diameter. Pancreas: Normal where seen. Right kidney: The right kidney measures 12.7 cm in length. No hydronephrosis, calculus, or mass. Vascular: Normal caliber abdominal aorta. The IVC appears patent. The main portal vein is patent with normal flow direction. IMPRESSION: 1. Hepatomegaly and hepatic steatosis without focal hepatic lesions. 2. No sonographic evidence of cholelithiasis. Dictated by Dillon Aguilar MD @ 01/24/2024 7:09:24 PM (Electronically Signed)
--- NOTE | 2024-01-24 20:14 | P.OBPN_ITS ---
OB - PN:Subj Subjective Time Seen by Provider: 20:14 Date Seen: 01/24/24 Interval history: Patient's LFTs have trended up throughout the day. Now has RUQ tenderness and pain on exam. Patient felt chilled this morning upon waking and felt overall unwell. This i mproved with tylenol. Vitals were stable. Bleeding has been appropriate. Patient is having increased swelling in her leg and has noted increased pain with fundal assessments. No fevers. She is working on breast feeding-- breasts are quite tender (notably baby has 2 teeth that have caused trauma to breast). She has been off magnesium for >24 hours. She is tolerating PO intake well, voiding without difficulty. Mil[place] infant status: bottle and Milmay feeding status: breast and bottle feeding OB - PN: Obj Exam Physical Exam: Vital signs: Temp Pulse Resp BP Pulse Ox O2 Del Method 99.0 F 86 16 130/84 96 Room Air 01/24/24 16:24 01/24/24 16:24 01/24/24 16:24 01/24/24 16:24 01/24/24 16:24 01/24/24 16:24 Constitutional: Constitutional: no acute distress Routine HEENT Exam: Head: Present atraumatic and normal inspection Routine Neck Exam: Neck: Present full ROM Routine Respiratory Exam: Respiratory: Present CTA bilaterally Routine Cardiovascular Exam: Cardiovascular: Present RRR, S1 and S2; Absent murmur Routine Abdominal Exam: Abdominal: Present tenderness (RUQ, no rebound/guarding) Fundus: Present firm Comments: minimally tender on fundus Routine Extremities Exam: Extremities: Present pedal edema; Absent calf tenderness Routine Back/Spine/Pelvis Exam: Back/Spine: Present full ROM Routine Neurological Exam: Neurological: Present alert and oriented X3 Routine Psychiatric Exam: Psychiatric: Present normal affect OB - PN: Obj Data Labs Labs: Laboratory Results - last 24 hr 01/24/24 01/24/24 08:14 17:03 WBC 10.20 10.41 RBC 3.21 L 3.22 L Hgb 9.5 L 9.6 L Hct 29.3 L 29.7 L MCV 91 92 MCH 30 30 MCHC 32 32 RDW Coeff of Shelia 14.1 Plt Count 259 317 Neut % (Auto) 60.8 Lymph % (Auto) 31.2 [place] % (Auto) 3.7 Eos % (Auto) 3.2 Baso % (Auto) 0.4 Neut # (Auto) 6.33 Lymph # (Auto) 3.25 H [place] # (Auto) 0.40 Eos # (Auto) 0.33 Baso # (Auto) 0.04 Abs Immat Gran (auto) 0.07 Imm/Tot Granulo (auto) 0.7 Sodium 136 Potassium 3.8 Chloride 105 Carbon Dioxide 23 Anion Gap 8 BUN 7 Creatinine 0.4 L 0.4 L Estimated Creat Clear 196.83 196.83 Estimated GFR 143 143 Glucose 111 Calcium 9.3 Total Bilirubin 0.1 AST 226 H 303 H ALT 71 H 106 H Alkaline Phosphatase 120 Total Protein 6.9 Albumin 3.7 OB - PN: A/P Delivery Assessment and Plan (1) with 39 completed weeks gestation: Problem details: complicated by chronic hypertension and baseline elevation of AST/ALT. S/p . Second degree laceration. Status: Acute (2) Chronic hypertension affecting : Problem details: Stable cHTN, on labetalol 50mg BID with elevated AST/ALT in early . Status: Acute Assessment and Plan: - blood pressures borderline, will increase to 100 mg bid. (3) Severe pre-eclampsia: Problem details: Started on IV magnesium for severe range blood pressures. Completed 24 hours . Status: Acute (4) hemorrhage: Problem details: Delayed PPH. Thought d/t retained placenta. S/p suction D&C. Status: Acute Assessment and Plan: - hemoglobin has been stable today. - recheck tomorrw (5) Uterine tenderness: Problem details: Patient has mild uterine tenderness. No fevers. Vitals stable. Patient is high risk for endometritis given her D&C, retained placenta. WBC count improved from last check. Status: Acute Assessment and Plan: - continue to monitor for fever or purulent discharge-- these would be indications to start antibiotics. (6) Elevated LFTs: Problem details: Baseline moderate fatty liver disease. ALT early 79, AST 53. Unfortunately, AST this morning was 226, significantly higher than last check. Discussed with Perinatology, recommend viral serologies and monitoring q12 hours until improving. Did not recommend restarting magnesium. Recheck this evening had trended up a bit more (106 and 303). I talked to Dr. Back from [facility] who is not concerned about the rise and would like us to continue to trend. Ultrasound showed hepatomegaly and fatty liver. Status: Acute Assessment and Plan: -recheck LFTs tomorrow morning. - continue to monitor for any worsening pain, nausea, vomiting. Plan - routine cares. Plan day: 3 Plan: routine care
[2024-01-24] MEDS: LABETALOL HCL 100 MG TABLET PO (20:56)
[2024-01-25] VITALS (9 sets, daily range): BP systolic 113–145; BP diastolic 75–89; PULSE 74–93; RESP 14–18; TEMP 36.4–37.5; O2SAT 96–100
[2024-01-25] MEDS: ACETAMINOPHEN 500 MG TABLET 1000 MG PO (05:16)
[2024-01-25 06:55] LABS: Basophils Absolute Auto 0.04 K/uL (0.00-0.30); Basophils Percent Auto 0.5 % (0.0-3.0); Eosinophils Absolute Auto 0.25 K/uL (0.00-0.50); Eosinophils Percent Auto 3.4 % (0.0-7.0); Hematocrit 27.4 % (33.0-51.0); Immature Granulocytes Abs Auto 0.07 K/uL (0.00-0.30); Lymphocytes Absolute Auto 2.49 K/uL (0.90-2.90); Lymphocytes Percent Auto 34.2 % (20-44); Mean Corpuscular HGB Conc 33 gm/dL (32-36); Mean Corpuscular Hemoglobin 30 pg (26-34); Mean Corpuscular Volume 92 fL (80-100); Monocytes Percent Auto 4.7 % (0.0-11.0); Neutrophils Percent Auto 56.2 % (42.0-72.0); Platelet Count* 287 K/uL (140-440); RDW Coefficient of Variation % 14.1 % (11.5-15.5); Red Blood Count 2.99 m/uL (4.00-5.20); White Blood Count* 7.29 K/uL (4.50-11.00)
[2024-01-25 07:11] LABS: Albumin* 3.2 g/dL (3.3-5.0)
[2024-01-25 07:12] LABS: Slide Review Reflex No
[2024-01-25 07:12] LABS: Chloride* 105 mmol/L (96-114); Potassium* 3.8 mmol/L (3.6-5.1); Sodium* 136 mmol/L (135-149)
[2024-01-25 07:14] LABS: Anion Gap 6 mEq/L (7-15); Aspartate Amino Transferase* 326 U/L (12-35); Bilirubin Total* 0.1 mg/dL (0.1-1.5); Carbon Dioxide* 25 mmol/L (20-32); Creatinine* 0.4 mg/dL (0.5-1.5); Est. Creatinine Clearance* 196.83; Estimated Glomerular Filt Rate 143 ml/min; Total Protein* 6.1 g/dL (6.0-8.3)
[2024-01-25 07:15] LABS: Alanine Aminotransferase* 118 U/L (4-35); Alkaline Phosphatase* 108 U/L (40-150); Blood Urea Nitrogen* 7 mg/dL (5-24); Calcium* 8.8 mg/dL (8.4-10.6); Glucose* 86 mg/dL (60-115)
[2024-01-25] MEDS: LABETALOL HCL 100 MG TABLET 200 MG PO ×2 (08:49→20:45)
[2024-01-25] MEDS: FERROUS SULFATE 325 MG TABLET PO (08:50)
[2024-01-25] MEDS: DOCUSATE SODIUM 100 MG CAPSULE PO (08:50)
--- NOTE | 2024-01-25 09:29 | P.OBPN_ITS ---
OB - PN:Subj Subjective Time Seen by Provider: 07:00 Date Seen: 01/25/24 Interval history: Patient's LFTs have trended up. However, patient feels RUQ pain is improved. Bleeding has been appropriate. Patient's swelling improved with compression stockings, voiding large volumes now. No fevers, fundal tenderness improving. She is working on breast feeding-- breasts are quite tender (notably baby has 2 teeth that have caused trauma to breast). She has been off magnesium for >24 hours. She is tolerating PO intake well, voiding without difficulty. Narrative: Patient states she is feeling better today. OB - PN: Obj Exam Physical Exam: Vital signs: Temp Pulse Resp BP Pulse Ox O2 Del Method 97.9 F 90 14 125/87 96 Room Air 01/25/24 08:46 01/25/24 08:46 01/25/24 08:46 01/25/24 08:46 01/25/24 08:46 01/25/24 08:46 Constitutional: Constitutional: no acute distress Routine HEENT Exam: Head: Present atraumatic ENT: Present mucous membranes moist Routine Neck Exam: Neck: Present full ROM Routine Respiratory Exam: Respiratory: Present CTA bilaterally Routine Cardiovascular Exam: Cardiovascular: Present RRR, S1 and S2; Absent murmur Detailed Abdominal Exam: Comments: minimal RUQ tenderness. Minimal tenderness of fundus, improved from yesterday. Uterus firm to palpation. Routine Extremities Exam: Extremities: Present pedal edema (improving pedal edema, compression in place); Absent calf tenderness Routine Back/Spine/Pelvis Exam: Back/Spine: Present full ROM Routine Neurological Exam: Neurological: Present alert and oriented X3 Routine Psychiatric Exam: Psychiatric: Present normal affect OB - PN: Obj Data Labs Labs: Laboratory Results - last 24 hr 01/24/24 01/24/24 01/25/24 08:14 17:03 06:32 WBC 10.41 RBC 3.22 L Hgb 9.6 L Hct 29.7 L MCV 92 MCH 30 MCHC 32 RDW Coeff of Shelia 14.1 Plt Count 317 Neut % (Auto) 60.8 Lymph % (Auto) 31.2 [place] % (Auto) 3.7 Eos % (Auto) 3.2 Baso % (Auto) 0.4 Neut # (Auto) 6.33 Lymph # (Auto) 3.25 H [place] # (Auto) 0.40 Eos # (Auto) 0.33 Baso # (Auto) 0.04 Abs Immat Gran (auto) 0.07 Imm/Tot Granulo (auto) 0.7 Sodium 136 136 Potassium 3.8 3.8 Chloride 105 105 Carbon Dioxide 23 25 Anion Gap 8 6 L BUN 7 7 Creatinine 0.4 L 0.4 L 0.4 L Estimated Creat Clear 196.83 196.83 196.83 Estimated GFR 143 143 143 Glucose 111 86 Calcium 9.3 8.8 Total Bilirubin 0.1 0.1 AST 303 H 326 H ALT 106 H 118 H Alkaline Phosphatase 120 108 Total Protein 6.9 6.1 Albumin 3.7 3.2 L 01/25/24 06:35 WBC 7.29 RBC 2.99 L Hgb 9.0 L Hct 27.4 L MCV 92 MCH 30 MCHC 33 RDW Coeff of Shelia 14.1 Plt Count 287 Neut % (Auto) 56.2 Lymph % (Auto) 34.2 [place] % (Auto) 4.7 Eos % (Auto) 3.4 Baso % (Auto) 0.5 Neut # (Auto) 4.10 Lymph # (Auto) 2.49 [place] # (Auto) 0.30 Eos # (Auto) 0.25 Baso # (Auto) 0.04 Abs Immat Gran (auto) 0.07 Imm/Tot Granulo (auto) 1.0 Sodium Potassium Chloride Carbon Dioxide Anion Gap BUN Creatinine Estimated Creat Clear Estimated GFR Glucose Calcium Total Bilirubin AST ALT Alkaline Phosphatase Total Protein Albumin OB - PN: A/P Delivery Assessment and Plan (1) with 39 completed weeks gestation: Problem details: complicated by chronic hypertension and baseline elevation of AST/ALT. S/p . Second degree laceration. Now increasing LFTs. Status: Acute (2) Chronic hypertension affecting : Problem details: cHTN, on labetalol 50mg BID on admission with elevated AST/ALT in early pregnan cy. Titrated labetalol to 200 mg bid today for borderline BPs Status: Acute Assessment and Plan: - increase labetalol to 200 mg bid. (3) Severe pre-eclampsia: Problem details: Started on IV magnesium for severe range blood pressures. Completed 24 hours . Status: Acute (4) hemorrhage: Problem details: Delayed PPH. Thought d/t retained placenta. S/p suction D&C. Status: Acute Assessment and Plan: - uterine tenderness improved today, bleeding appropriate (5) Uterine tenderness: Problem details: Patient has mild uterine tenderness. No fevers. Vitals stable. Patient is high risk for endometritis given her D&C, retained placenta. WBC count improved from last check. Status: Acute Assessment and Plan: - uterine tenderness improving, continue to monitor closely (6) Elevated LFTs: Problem details: Baseline moderate fatty liver disease. ALT early 79, AST 53. Unfortunately, AST 01/23 was 226, significantly higher than last check. Discussed with Perinatology, recommend viral serologies and monitoring q12 hours until improving. Did not recommend restarting magnesium. I talked to Dr. Back from [facility] who is not concerned about the rise and would like us to mainor arpan to trend. Ultrasound showed hepatomegaly and fatty liver. LFTs increased again this morning. Status: Acute Assessment and Plan: - reviewed plan again with perinatology and local [employer] provider. - recommend q12 hour labs until decreasing. Continuing hospitalization until labs improving, then recheck 1 week post discharge. Plan - titrated up labetalol to 200 mg bid - continuing to monitor LFTs - will need to stay until LFTs are improving. Plan day: 4 Plan: routine care
[2024-01-25] MEDS: IBUPROFEN 600 MG TABLET PO (12:19)
[2024-01-25 17:18] LABS: Basophils Absolute Auto 0.04 K/uL (0.00-0.30); Basophils Percent Auto 0.4 % (0.0-3.0); Eosinophils Absolute Auto 0.26 K/uL (0.00-0.50); Eosinophils Percent Auto 2.9 % (0.0-7.0); Hematocrit 27.8 % (33.0-51.0); Immature Granulocytes Abs Auto 0.06 K/uL (0.00-0.30); Immature Granulocytes Pct Auto 0.7 %; Lymphocytes Percent Auto 28.5 % (20-44); Mean Corpuscular HGB Conc 32 gm/dL (32-36); Mean Corpuscular Hemoglobin 30 pg (26-34); Mean Corpuscular Volume 92 fL (80-100); Monocytes Percent Auto 4.2 % (0.0-11.0); Neutrophils Absolute Auto 5.78 K/uL (1.7-7.0); Neutrophils Percent Auto 63.3 % (42.0-72.0); Platelet Count* 347 K/uL (140-440); RDW Coefficient of Variation % 14.1 % (11.5-15.5); Red Blood Count 3.01 m/uL (4.00-5.20); White Blood Count* 9.12 K/uL (4.50-11.00)
[2024-01-25 17:20] LABS: Slide Review Reflex No
[2024-01-25 17:35] LABS: Albumin* 3.5 g/dL (3.3-5.0); Chloride* 107 mmol/L (96-114)
[2024-01-25 17:36] LABS: Potassium* 3.8 mmol/L (3.6-5.1); Sodium* 136 mmol/L (135-149)
[2024-01-25 17:38] LABS: Alkaline Phosphatase* 136 U/L (40-150); Anion Gap 6 mEq/L (7-15); Aspartate Amino Transferase* 420 U/L (12-35); Blood Urea Nitrogen* 14 mg/dL (5-24); Carbon Dioxide* 23 mmol/L (20-32); Creatinine* 0.4 mg/dL (0.5-1.5); Est. Creatinine Clearance* 196.83; Estimated Glomerular Filt Rate 143 ml/min; Total Protein* 6.5 g/dL (6.0-8.3)
[2024-01-25 17:39] LABS: Alanine Aminotransferase* 187 U/L (4-35); Bilirubin Total* < 0.1 mg/dL (0.1-1.5); Calcium* 8.8 mg/dL (8.4-10.6); Glucose* 116 mg/dL (60-115); Lactate Dehydrogenase* 405 U/L (120-246)
--- NOTE | 2024-01-25 19:41 | PM.OBPNVD1 ---
OB - PN:Subj Subjective Time Seen by Provider: 19:41 Date Seen: 01/25/24 Interval history: Patient's LFTs have trended up. Continues with RUQ pain. AST was 420, ALT 187. Bleeding has been appropriate. No fevers, fundal tenderness improving. Patient's swelling improved with compression stockings, voiding larger volumes now. She is working on breast feeding-- breasts are quite tender (notably baby has 2 teeth that have caused trauma to breast). She has been off magnesium for >24 hours. She is tolerating PO intake well, voiding without difficulty. Perineum pain is well controlled. Narrative: Cam in to discuss options with patient. OB - PN: Obj Exam Physical Exam: Vital signs: Temp Pulse Resp BP Pulse Ox O2 Del Method 98.0 F 93 18 136/87 100 Room Air 01/25/24 16:35 01/25/24 16:35 01/25/24 16:35 01/25/24 16:54 01/25/24 16:35 01/25/24 16:35 Constitutional: Constitutional: no acute distress Routine HEENT Exam: Head: Present atraumatic and normocephalic Detailed Neck Exam: Thyroids: Thyroid: Present normal Routine Respiratory Exam: Respiratory: Present CTA bilaterally Routine Cardiovascular Exam: Cardiovascular: Present RRR, S1 and S2 Routine Abdominal Exam: Abdominal: Present normal bowel sounds Detailed Abdominal Exam: Comments: RUQ pain, no rebound/guarding Fundus midline, firm, 2 under umbilicus. Minimal tenderness, much improved from yesterday's exam. Routine Extremities Exam: Extremities: Present pedal edema; Absent calf tenderness Routine Back/Spine/Pelvis Exam: Back/Spine: Present full ROM Routine Neurological Exam: Neurological: Present alert and oriented X3 OB - PN: Obj Data Labs Labs: Laboratory Results - last 24 hr 01/25/24 01/25/24 01/25/24 06:32 06:35 17:10 WBC 7.29 9.12 RBC 2.99 L 3.01 L Hgb 9.0 L 9.0 L Hct 27.4 L 27.8 L MCV 92 92 MCH 30 30 MCHC 33 32 RDW Coeff of Shelia 14.1 14.1 Plt Count 287 347 Neut % (Auto) 56.2 63.3 Lymph % (Auto) 34.2 28.5 [place] % (Auto) 4.7 4.2 Eos % (Auto) 3.4 2.9 Baso % (Auto) 0.5 0.4 Neut # (Auto) 4.10 5.78 Lymph # (Auto) 2.49 2.60 [place] # (Auto) 0.30 0.40 Eos # (Auto) 0.25 0.26 Baso # (Auto) 0.04 0.04 Abs Immat Gran (auto) 0.07 0.06 Imm/Tot Granulo (auto) 1.0 0.7 Sodium 136 136 Potassium 3.8 3.8 Chloride 105 107 Carbon Dioxide 25 23 Anion Gap 6 L 6 L BUN 7 14 Creatinine 0.4 L 0.4 L Estimated Creat Clear 196.83 196.83 Estimated GFR 143 143 Glucose 86 116 H Calcium 8.8 8.8 Total Bilirubin 0.1 < 0.1 L AST 326 H 420 H ALT 118 H 187 H Alkaline Phosphatase 108 136 Lactate Dehydrogenase 405 H Total Protein 6.1 6.5 Albumin 3.2 L 3.5 OB - PN: A/P Delivery Assessment and Plan (1) with 39 completed weeks gestation: Problem details: complicated by chronic hypertension and baseline elevation of AST/ALT. S/p . Second degree laceration. Delayed hemorrhage. Now increasing LFTs. Status: Acute Assessment and Plan: - routine cares (2) Chronic hypertension affecting : Problem details: cHTN, on labetalol 50mg BID on admission with elevated AST/ALT in early (ultrasound during showed fatty liver). Titrated labetalol to 200 mg bid today for borderline BPs Status: Acute Assessment and Plan: - blood pressures well controlled for several hours after dose. Creeping up this evening. - will change to 200 mg labetalol TID (3) Severe pre-eclampsia: Problem details: Completed IV magnesium for severe range blood pressures. Liver enzymes increased above baseline on 01/23 and continue to rise. Status: Acute Assessment and Plan: - concern for progression to HELLP, but platelets normal at this time (4) hemorrhage: Problem details: Delayed PPH morning of 01/21. Thought d/t retained placenta. S/p suction D&C. QBL was 2075. Did receive 2 units of PRBC per massive transfusion protocol. Hemoglobin on admission was 12.6. Now to 9.0 today. Status: Acute (5) Uterine tenderness: Problem details: Patient has mild uterine tenderness. No fevers. Vitals stable. Patient is high risk for endometritis given her D&C, retained placenta. Received ancef intraoperatively. Status: Acute (6) Elevated LFTs: Problem details: Baseline moderate fatty liver disease. ALT early 79, AST 53. Unfortunately, AST 01/23 was 226, significantly higher than last check. Discussed with Perinatology, recommend viral serologies and monitoring q12 hours until improving. Did not recommend restarting magnesium. I talked to Dr. Back from [facility] who encouraged ongoing monitoring (evening 01/23). Ultrasound showed hepatomegaly and fatty liver. Liver enzymes continue to raise, now AST 420, ALT 187. DDx includes acute fatty liver, evolving preeclampsia to HELLP, biliary disease, viral hepatitis, hemolysis. Status: Acute Assessment and Plan: - Discussed with Dr. Petersen at [facility] this evening. - recommended ongoing lab monitoring with recheck at 5am. - patient has been accepted for transfer at [facility] unit ([facility]) but staffing is not available until morning of 01/25. - Will continue to monitor closely for worsening symptoms, if worsening overnight could take in [facility] ICU overnight. Plan - Close monitoring of symptoms overnight - Labs in AM - plan on transferring to [facility] in AM unless symptoms improve and labs improve by morning. Plan day: 4 Plan: routine care
[2024-01-26] MEDS: IBUPROFEN 600 MG TABLET PO ×2 (03:13→14:55)
[2024-01-26 03:49] VITALS: BP 115/80; PULSE 83; RESP 18; TEMP 37; O2SAT 96
[2024-01-26] MEDS: LABETALOL HCL 100 MG TABLET 200 MG PO ×2 (03:53→12:02)
[2024-01-26 05:15] LABS: Basophils Absolute Auto 0.03 K/uL (0.00-0.30); Basophils Percent Auto 0.3 % (0.0-3.0); Eosinophils Absolute Auto 0.27 K/uL (0.00-0.50); Eosinophils Percent Auto 2.9 % (0.0-7.0); Hemoglobin* 8.7 gm/dL (12.0-16.0); Immature Granulocytes Abs Auto 0.08 K/uL (0.00-0.30); Immature Granulocytes Pct Auto 0.9 %; Lymphocytes Absolute Auto 3.09 K/uL (0.90-2.90); Mean Corpuscular HGB Conc 32 gm/dL (32-36); Mean Corpuscular Hemoglobin 30 pg (26-34); Mean Corpuscular Volume 93 fL (80-100); Neutrophils Absolute Auto 5.43 K/uL (1.7-7.0); Neutrophils Percent Auto 57.9 % (42.0-72.0); Platelet Count* 334 K/uL (140-440); RDW Coefficient of Variation % 14.3 % (11.5-15.5); Red Blood Count 2.91 m/uL (4.00-5.20); White Blood Count* 9.37 K/uL (4.50-11.00)
[2024-01-26 05:28] LABS: Albumin* 3.4 g/dL (3.3-5.0); Chloride* 107 mmol/L (96-114); Sodium* 137 mmol/L (135-149)
[2024-01-26 05:30] LABS: Anion Gap 17 mEq/L (7-15); Bilirubin Total* 0.3 mg/dL (0.1-1.5); Carbon Dioxide* 13 mmol/L (20-32); Creatinine* 0.3 mg/dL (0.5-1.5); Est. Creatinine Clearance* 262.44; Estimated Glomerular Filt Rate 153 ml/min
[2024-01-26 05:31] LABS: Alanine Aminotransferase* 163 U/L (4-35); Alkaline Phosphatase* 108 U/L (40-150); Aspartate Amino Transferase* 242 U/L (12-35); Blood Urea Nitrogen* 9 mg/dL (5-24); Calcium* 8.1 mg/dL (8.4-10.6); Glucose* 103 mg/dL (60-115); Lactate Dehydrogenase* 426 U/L (120-246); Total Protein* 5.9 g/dL (6.0-8.3)
[2024-01-26 05:36] LABS: Slide Review Reflex No
--- NOTE | 2024-01-26 06:54 | PM.OBPNVD1 ---
OB - PN:Subj Subjective Time Seen by Provider: 06:30 Date Seen: 01/26/24 Interval history: Patient's LFTs have trended up but are finally going down. Was accepted for transfer this morning to [facility], but discussed with perinatology and they feel given improvement ok to keep here in [place]. Continues with RUQ pain. AST was 420 to 242 this morning, ALT 187 to 163 today. Bleeding has been appropriate. No fevers, fundal tenderness improved Patient's swelling improved with compression stockings, voiding larger volumes now. She is working on breast feeding-- breasts are quite tender (notably baby has 2 teeth that have caused trauma to breast). Feels milk is in. She has been off magnesium for >48 hours. She is tolerating PO intake well, voiding without difficulty. Perineum pain is well controlled with tylenol and ibuprofen Narrative: Had some mid back pain last evening. Improved with heating pad. OB - PN: Obj Exam Physical Exam: Vital signs: Temp Pulse Resp BP Pulse Ox O2 Del Method 98.6 F 83 18 115/80 96 Room Air 01/26/24 03:49 01/26/24 03:49 01/26/24 03:49 01/26/24 03:49 01/26/24 03:49 01/26/24 03:49 Constitutional: Constitutional: no acute distress Routine HEENT Exam: Head: Present atraumatic and normal inspection Routine Neck Exam: Neck: Present full ROM Detailed Neck Exam: Thyroids: Thyroid: Present normal Routine Respiratory Exam: Respiratory: Present CTA bilaterally Routine Cardiovascular Exam: Cardiovascular: Present RRR, S1 and S2; Absent murmur Routine Abdominal Exam: Abdominal: Present normal bowel sounds Fundus: Present firm Comments: nontender fundus today Routine Extremities Exam: Extremities: Present pedal edema (improving); Absent calf tenderness Routine Back/Spine/Pelvis Exam: Back/Spine: Present full ROM; Absent CVA tenderness or paraspinal tenderness Routine Skin Exam: Skin: Present warm Routine Neurological Exam: Neurological: Present alert and oriented X3 Routine Psychiatric Exam: Psychiatric: Present normal affect OB - PN: Obj Data Labs Labs: Laboratory Results - last 24 hr 01/25/24 01/25/24 01/25/24 06:32 06:35 17:10 WBC 7.29 9.12 RBC 2.99 L 3.01 L Hgb 9.0 L 9.0 L Hct 27.4 L 27.8 L MCV 92 92 MCH 30 30 MCHC 33 32 RDW Coeff of Shelia 14.1 14.1 Plt Count 287 347 Neut % (Auto) 56.2 63.3 Lymph % (Auto) 34.2 28.5 [place] % (Auto) 4.7 4.2 Eos % (Auto) 3.4 2.9 Baso % (Auto) 0.5 0.4 Neut # (Auto) 4.10 5.78 Lymph # (Auto) 2.49 2.60 [place] # (Auto) 0.30 0.40 Eos # (Auto) 0.25 0.26 Baso # (Auto) 0.04 0.04 Abs Immat Gran (auto) 0.07 0.06 Imm/Tot Granulo (auto) 1.0 0.7 Sodium 136 136 Potassium 3.8 3.8 Chloride 105 107 Carbon Dioxide 25 23 Anion Gap 6 L 6 L BUN 7 14 Creatinine 0.4 L 0.4 L Estimated Creat Clear 196.83 196.83 Estimated GFR 143 143 Glucose 86 116 H Calcium 8.8 8.8 Total Bilirubin 0.1 < 0.1 L AST 326 H 420 H ALT 118 H 187 H Alkaline Phosphatase 108 136 Lactate Dehydrogenase 405 H Total Protein 6.1 6.5 Albumin 3.2 L 3.5 01/26/24 05:10 WBC 9.37 RBC 2.91 L Hgb 8.7 L Hct 27.0 L MCV 93 MCH 30 MCHC 32 RDW Coeff of Shelia 14.3 Plt Count 334 Neut % (Auto) 57.9 Lymph % (Auto) 33.0 [place] % (Auto) 5.0 Eos % (Auto) 2.9 Baso % (Auto) 0.3 Neut # (Auto) 5.43 Lymph # (Auto) 3.09 H [place] # (Auto) 0.50 Eos # (Auto) 0.27 Baso # (Auto) 0.03 Abs Immat Gran (auto) 0.08 Imm/Tot Granulo (auto) 0.9 Sodium 137 Potassium 4.0 Chloride 107 Carbon Dioxide 13 L Anion Gap 17 H BUN 9 Creatinine 0.3 L Estimated Creat Clear 262.44 Estimated GFR 153 Glucose 103 Calcium 8.1 L Total Bilirubin 0.3 AST 242 H ALT 163 H Alkaline Phosphatase 108 Lactate Dehydrogenase 426 H Total Protein 5.9 L Albumin 3.4 OB - PN: A/P Delivery Assessment and Plan (1) with 39 completed weeks gestation: Problem details: complicated by chronic hypertension and baseline elevation of AST/ALT. S/p . Second degree laceration. Delayed hemorrhage. Very elevated LFTs, now improving Status: Acute (2) Chronic hypertension affecting : Problem details: cHTN, on labetalol 50mg BID on admission with elevated AST/ALT in early (ultrasound during showed fatty liver). Titrated labetalol to 200 mg TID. Blood pressures overnight appropriate (110s /70s) Status: Acute Assessment and Plan: - Continue labetalol TID dosing (3) Severe pre-eclampsia: Problem details: Completed IV magnesium for severe range blood pressures. Liver enzymes increased above baseline on 01/23, finally improving this morning 01/25 Status: Acute Assessment and Plan: - Discussed again with perinatology. Wants us to establish trend. Recheck in 6 hours at 11am, if improving may discharge and follow up with labs within 1 week. Weight down another kilo from yesterday, urine output improving, likely diuresing. (4) hemorrhage: Problem details: Delayed PPH morning of 01/21. Thought d/t retained placenta. S/p suction D&C. QBL was 2075. Did receive 2 units of PRBC per massive transfusion protocol. Hemoglobin on admission was 12.6. Now to 8.7 today. Status: Acute Assessment and Plan: - continue oral iron - continue monitoring for endometritis (5) Uterine tenderness: Problem details: Patient had mild uterine tenderness. No fevers. Vitals stable. Patient is high risk for endometritis given her D&C, retained placenta. Received ancef intraoperatively. Urine culture was normal. Status: Acute Assessment and Plan: - tenderness has improved, continue to monitor for fever. (6) Elevated LFTs: Problem details: Baseline moderate fatty liver disease. ALT early 79, AST 53. Unfortunately, AST 01/23 was 226, significantly higher than last check. Discussed with Perinatology, recommend viral serologies and monitoring q12 hours until improving. Did not recommend restarting magnesium. I talked to Dr. Back from [facility] who encouraged ongoing monitoring (evening 01/23). Ultrasound showed hepatomegaly and fatty liver. Liver enzymes continue to raise, now AST 420, ALT 187. Fortunately, labs improving 01/25. Most likely 2/2 to preeclampsia given improvement after day 5 Status: Acute Assessment and Plan: - trend LFTs at 11am (6 hour recheck). If decreasing, per MPP, ok for discharge. (7) Back pain: Problem details: Back pain started overnight 01/24. Given heating pad which improved all pain. No pain on assessment 01/25 am Status: Acute Assessment and Plan: - may be due to breast feeding positioning/musculoskeletal pain - continue heat prn. Plan - continue to monitor blood pressures Plan day: 5 Total time spent: 45
[2024-01-26 08:15] VITALS: BP 127/81; PULSE 82; RESP 16; TEMP 36.7; O2SAT 97
[2024-01-26] MEDS: DOCUSATE SODIUM 100 MG CAPSULE PO (08:20)
[2024-01-26] MEDS: FERROUS SULFATE 325 MG TABLET PO (08:20)
[2024-01-26 11:09] LABS: Basophils Absolute Auto 0.03 K/uL (0.00-0.30); Basophils Percent Auto 0.3 % (0.0-3.0); Eosinophils Absolute Auto 0.29 K/uL (0.00-0.50); Eosinophils Percent Auto 3.3 % (0.0-7.0); Hematocrit 29.2 % (33.0-51.0); Hemoglobin* 9.4 gm/dL (12.0-16.0); Immature Granulocytes Abs Auto 0.08 K/uL (0.00-0.30); Immature Granulocytes Pct Auto 0.9 %; Lymphocytes Absolute Auto 2.51 K/uL (0.90-2.90); Lymphocytes Percent Auto 28.8 % (20-44); Mean Corpuscular HGB Conc 32 gm/dL (32-36); Mean Corpuscular Hemoglobin 30 pg (26-34); Mean Corpuscular Volume 93 fL (80-100); Neutrophils Absolute Auto 5.37 K/uL (1.7-7.0); Neutrophils Percent Auto 61.7 % (42.0-72.0); Platelet Count* 365 K/uL (140-440); RDW Coefficient of Variation % 14.4 % (11.5-15.5); Red Blood Count 3.15 m/uL (4.00-5.20); White Blood Count* 8.72 K/uL (4.50-11.00)
[2024-01-26 11:18] LABS: Slide Review Reflex No
[2024-01-26 11:24] LABS: Albumin* 3.7 g/dL (3.3-5.0); Chloride* 108 mmol/L (96-114); Potassium* 3.6 mmol/L (3.6-5.1); Sodium* 138 mmol/L (135-149)
[2024-01-26 11:26] LABS: Creatinine* 0.4 mg/dL (0.5-1.5); Est. Creatinine Clearance* 196.83; Estimated Glomerular Filt Rate 143 ml/min
[2024-01-26 11:27] LABS: Alanine Aminotransferase* 212 U/L (4-35); Alkaline Phosphatase* 118 U/L (40-150); Anion Gap 7 mEq/L (7-15); Aspartate Amino Transferase* 493 U/L (12-35); Bilirubin Total* 0.1 mg/dL (0.1-1.5); Blood Urea Nitrogen* 8 mg/dL (5-24); Calcium* 9.1 mg/dL (8.4-10.6); Carbon Dioxide* 23 mmol/L (20-32); Glucose* 123 mg/dL (60-115); Total Protein* 6.8 g/dL (6.0-8.3)
[2024-01-26 11:28] LABS: Lactate Dehydrogenase* 512 U/L (120-246)
[2024-01-26 11:50] LABS: INR 0.89 (0.91-1.10); Prothrombin Time 12.6 Seconds
[2024-01-26 11:59] VITALS: BP 114/65; PULSE 95; RESP 18; TEMP 36.7; O2SAT 97
--- NOTE | 2024-01-26 12:38 | W.PM.OBTRAN ---
History of Present Illness History of Present Illness Time Seen by Provider: 12:39 Date Seen: 01/26/24 History of Present Illness: 23 year old at weeks who is day 5 s/p on 01/21/2024 after IOL for chronic hypertension on labetalol prior to induction. Developed preeclampsia with severe features based on severe range blood pressures in labor and magnesium was initiated and continued for 24 hours . Had delayed hemorrhage morning of 01/21 requiring 2 units of PRBCs and D&C in OR-- found to have retained products. Patient's bleeding has been appropriate since and has not required further blood products. Unfortunately, morning of 01/23 patient's Liver enzymes started to increase. Patient does have fatty liver at baseline with a baseline AST in the 50s and baseline ALT in the 70s. Liver ultrasound was done 01/23 evening and showed fatty liver and new hepatomegaly (20 cm). Patient has continued to have increasing liver transaminases and has developed worsening RUQ pain. Blood pressures have accelerated some but have been controlled now with 200 mg labetalol TID. She had brief improvement in labs this morning, but now labs are worsened again. AST of 493, ALT of 212. Patient was accepted for transfer on 01/24, but unfortunately no staffing available for transfer. Perinatology wanted to transfer early this morning after labs. Labs improved briefly this morning, but worsened again. Contacted perinatology again. Discussed with Perinatology who recommended transfer of care for GI consultation given persistent elevation of LFTs >300. Patient's mother is very frustrated in the delay of her transfer of care. She has history of preeclampsia and was transferred 10 years ago due to this (I am not clear the details of why she was transferred specifically). Meds Home Medications and Allergies Home Medications ?Medication ?Instructions ?Recorded ?Confirmed ?Type cholecalciferol (vitamin D3) 25 1,000 unit PO DAILY 10/26/23 01/20/24 History mcg (1,000 unit) capsule vit 168-iron 27 mg-folic 1 cap PO DAILY 10/26/23 01/25/24 History acid 800 mcg-omega3 235 mg capsule (One-A-Day -1) Allergies Allergy/AdvReac Type Severity Reaction Status Date / Time No Known Allergies Allergy Verified 01/20/24 16:48 [facility] Medical History Vaginal delivery ?O80 - Encounter for full-term uncomplicated delivery (ICD-10) Hepatic steatosis ?K76.0 - Fatty (change of) liver, not elsewhere classified (ICD-10) Chronic hypertension ?I10 - Essential (primary) hypertension (ICD-10) Surgical History S/P dilation and curettage ?Z98.890 - Other specified postprocedural states (ICD-10) S/P appendectomy ?Z90.49 - Acquired absence of other specified parts of digestive tract (ICD-10) Family History (Updated 01/26/24 @ 13:02 by Eunice Howell MD) Mother Preeclampsia Paternal Grandmother Kidney failure Diabetes Social History What is your current living situation?: I presently have a place to live Problems where you live: no known problems In the past 12 months, utilities in danger of being shut off: no In the past 12 mos, have been you worried that your food would run out before you had money to buy more?: never true In the past 12 mos, the food you bought just didn't last and you didn't have money to buy more?: never true Smoking Status: Never smoker How often does anyone, including family, friends and others, physically hurt you: never How often does anyone, including family, friends and others, insult or talk down to you: never How often does anyone, including family, friends and others, threaten you with harm: never How often does anyone, including family, friends and others, scream or curse at you: never History History 1 Elective abortions Para 1 Spontaneous abortions Hx # Term Pregnancies Ectopic pregnancies Hx # Pregnancies Multiple births Number of Living Children 0 OB - H&P: Exam Physical Exam Vital signs: Temp Pulse Resp BP Pulse Ox O2 Del Method 98.1 F 95 18 114/65 97 Room Air 01/26/24 11:59 01/26/24 11:59 01/26/24 11:59 01/26/24 11:59 01/26/24 11:59 01/26/24 11:59 Constitutional Constitutional: no acute distress Routine HEENT Exam Head: Present atraumatic and normal inspection ENT: Present mucous membranes moist Routine Neck Exam Neck: Present full ROM Routine Respiratory Exam Respiratory: Present CTA bilaterally Routine Cardiovascular Exam Cardiovascular: RRR, S1 and S2 Detailed Abdominal Exam Comments: RUQ tender to palpation. Uterus firm, 3 under umbilicus. No significant tenderness. Routine Extremities Exam Extremities: Present pedal edema (1+, improved from yesterday); Absent calf tenderness Routine Back/Spine/Pelvis Exam Back/Spine: full ROM Comments: nontender Routine Skin Exam Present intact and warm Routine Neurological Exam Present alert and oriented X3 Routine Psychiatric Exam Present normal affect Results Labs Lab Assessment Start: 01/20/24 16:24 Freq: ONCE Status: Complete Protocol: TATE'S LISTOBGBS Activity Type Activity Date Activity User E-sign Co-sign Detail Recorded Client Recorded Date Recorded By Document 01/20/24 16:26 [facility] [place] [id number] 01/20/24 16:26 [facility] 01/20/24 16:26 Lab Assessment GBS Status negative GBS Additional Criteria None No Treatment Needed OK Are Labs Available Yes Maternal Blood Type B Maternal RH Factor Positive Evaluate Maternal Rubella Immune Status Immune Hepatitis B Surface Antigen Negative Maternal HIV Status Negative Maternal Syphillis (RPR) Status Negative Labs Laboratory Tests 01/26/24 01/26/24 01/25/24 Range/Units 11:03 05:10 17:10 WBC 8.72 9.37 9.12 (4.50-11.00) K/uL RBC 3.15 L 2.91 L 3.01 L (4.00-5.20) m/uL Hgb 9.4 L 8.7 L 9.0 L (12.0-16.0) gm/dL Hct 29.2 L 27.0 L 27.8 L (33.0-51.0) % MCV 93 93 92 (80-100) fL MCH 30 30 30 (26-34) pg MCHC 32 32 32 (32-36) gm/dL RDW Coeff of Shelia 14.4 14.3 14.1 (11.5-15.5) % Plt Count 365 334 347 (140-440) K/uL Neut % (Auto) 61.7 57.9 63.3 (42.0-72.0) % Lymph % (Auto) 28.8 33.0 28.5 (20-44) % Nicholas % (Auto) 5.0 5.0 4.2 (0.0-11.0) % Eos % (Auto) 3.3 2.9 2.9 (0.0-7.0) % Baso % (Auto) 0.3 0.3 0.4 (0.0-3.0) % Neut # (Auto) 5.37 5.43 5.78 (1.7-7.0) K/uL Lymph # (Auto) 2.51 3.09 H 2.60 (0.90-2.90) K/uL Nicholas # (Auto) 0.40 0.50 0.40 (0.00-0.90) K/UL Eos # (Auto) 0.29 0.27 0.26 (0.00-0.50) K/uL Baso # (Auto) 0.03 0.03 0.04 (0.00-0.30) K/uL Abs Immat Gran (auto) 0.08 0.08 0.06 (0.00-0.30) K/uL Imm/Tot Granulo (auto) 0.9 0.9 0.7 % INR 0.89 L (0.91-1.10) APTT (23-33) Seconds Fibrinogen (200-450) mg/dL Sodium 138 137 136 (135-149) mmol/L Potassium 3.6 4.0 3.8 (3.6-5.1) mmol/L Chloride 108 107 107 (96-114) mmol/L Carbon Dioxide 23 13 L 23 (20-32) mmol/L Anion Gap 7 17 H 6 L (7-15) mEq/L BUN 8 9 14 (5-24) mg/dL Creatinine 0.4 L 0.3 L 0.4 L (0.5-1.5) mg/dL Estimated Creat Clear 196.83 262.44 196.83 Estimated GFR 143 153 143 ml/min Glucose 123 H 103 116 H (60-115) mg/dL Haptoglobin Pending Calcium 9.1 8.1 L 8.8 (8.4-10.6) mg/dL Magnesium (1.5-2.6) mg/dL Total Bilirubin 0.1 0.3 < 0.1 L (0.1-1.5) mg/dL AST 493 H 242 H 420 H (12-35) U/L ALT 212 H 163 H 187 H (4-35) U/L Alkaline Phosphatase 118 108 136 (40-150) U/L Lactate Dehydrogenase 512 H 426 H 405 H (120-246) U/L Total Protein 6.8 5.9 L 6.5 (6.0-8.3) g/dL Albumin 3.7 3.4 3.5 (3.3-5.0) g/dL Urine Creatinine mg/dL Protein/Creatinin Ratio (0-0.19) Urine Total Protein mg/dL RPR Screen (Non Reactive) Hepatitis A IgM Ab Hep Bs Antigen Hep B Core IgM Ab Hep C Ab Index (LISANDRO) Hep C Ab Interp LISANDRO Hepatitis Interpret Blood Type Antibody Screen Crossmatch (AHG) 01/25/24 01/25/24 01/24/24 Range/Units 06:35 06:32 17:03 WBC 7.29 10.41 (4.50-11.00) K/uL RBC 2.99 L 3.22 L (4.00-5.20) m/uL Hgb 9.0 L 9.6 L (12.0-16.0) gm/dL Hct 27.4 L 29.7 L (33.0-51.0) % MCV 92 92 (80-100) fL MCH 30 30 (26-34) pg MCHC 33 32 (32-36) gm/dL RDW Coeff of Shelia 14.1 14.1 (11.5-15.5) % Plt Count 287 317 (140-440) K/uL Neut % (Auto) 56.2 60.8 (42.0-72.0) % Lymph % (Auto) 34.2 31.2 (20-44) % Nicholas % (Auto) 4.7 3.7 (0.0-11.0) % Eos % (Auto) 3.4 3.2 (0.0-7.0) % Baso % (Auto) 0.5 0.4 (0.0-3.0) % Neut # (Auto) 4.10 6.33 (1.7-7.0) K/uL Lymph # (Auto) 2.49 3.25 H (0.90-2.90) K/uL Nicholas # (Auto) 0.30 0.40 (0.00-0.90) K/UL Eos # (Auto) 0.25 0.33 (0.00-0.50) K/uL Baso # (Auto) 0.04 0.04 (0.00-0.30) K/uL Abs Immat Gran (auto) 0.07 0.07 (0.00-0.30) K/uL Imm/Tot Granulo (auto) 1.0 0.7 % INR (0.91-1.10) APTT (23-33) Seconds Fibrinogen (200-450) mg/dL Sodium 136 136 (135-149) mmol/L Potassium 3.8 3.8 (3.6-5.1) mmol/L Chloride 105 105 (96-114) mmol/L Carbon Dioxide 25 23 (20-32) mmol/L Anion Gap 6 L 8 (7-15) mEq/L BUN 7 7 (5-24) mg/dL Creatinine 0.4 L 0.4 L (0.5-1.5) mg/dL Estimated Creat Clear 196.83 196.83 Estimated GFR 143 143 ml/min Glucose 86 111 (60-115) mg/dL Haptoglobin Calcium 8.8 9.3 (8.4-10.6) mg/dL Magnesium (1.5-2.6) mg/dL Total Bilirubin 0.1 0.1 (0.1-1.5) mg/dL AST 326 H 303 H (12-35) U/L ALT 118 H 106 H (4-35) U/L Alkaline Phosphatase 108 120 (40-150) U/L Lactate Dehydrogenase (120-246) U/L Total Protein 6.1 6.9 (6.0-8.3) g/dL Albumin 3.2 L 3.7 (3.3-5.0) g/dL Urine Creatinine mg/dL Protein/Creatinin Ratio (0-0.19) Urine Total Protein mg/dL RPR Screen (Non Reactive) Hepatitis A IgM Ab Hep Bs Antigen Hep B Core IgM Ab Hep C Ab Index (LISANDRO) Hep C Ab Interp LISANDRO Hepatitis Interpret Blood Type Antibody Screen Crossmatch (AHG) 01/24/24 01/24/24 01/22/24 Range/Units 09:56 08:14 19:58 WBC 10.20 15.58 H (4.50-11.00) K/uL RBC 3.21 L 3.67 L (4.00-5.20) m/uL Hgb 9.5 L 10.9 L (12.0-16.0) gm/dL Hct 29.3 L 32.9 L (33.0-51.0) % MCV 91 90 (80-100) fL MCH 30 30 (26-34) pg MCHC 32 33 (32-36) gm/dL RDW Coeff of Shelia (11.5-15.5) % Plt Count 259 302 (140-440) K/uL Neut % (Auto) (42.0-72.0) % Lymph % (Auto) (20-44) % Nicholas % (Auto) (0.0-11.0) % Eos % (Auto) (0.0-7.0) % Baso % (Auto) (0.0-3.0) % Neut # (Auto) (1.7-7.0) K/uL Lymph # (Auto) (0.90-2.90) K/uL Nicholas # (Auto) (0.00-0.90) K/UL Eos # (Auto) (0.00-0.50) K/uL Baso # (Auto) (0.00-0.30) K/uL Abs Immat Gran (auto) (0.00-0.30) K/uL Imm/Tot Granulo (auto) % INR (0.91-1.10) APTT (23-33) Seconds Fibrinogen (200-450) mg/dL Sodium (135-149) mmol/L Potassium (3.6-5.1) mmol/L Chloride (96-114) mmol/L Carbon Dioxide (20-32) mmol/L Anion Gap (7-15) mEq/L BUN 8 (5-24) mg/dL Creatinine 0.4 L 0.5 (0.5-1.5) mg/dL Estimated Creat Clear 196.83 157.46 Estimated GFR 143 135 ml/min Glucose (60-115) mg/dL Haptoglobin Calcium (8.4-10.6) mg/dL Magnesium (1.5-2.6) mg/dL Total Bilirubin (0.1-1.5) mg/dL AST 226 H 68 H (12-35) U/L ALT 71 H 40 H (4-35) U/L Alkaline Phosphatase (40-150) U/L Lactate Dehydrogenase (120-246) U/L Total Protein (6.0-8.3) g/dL Albumin (3.3-5.0) g/dL Urine Creatinine mg/dL Protein/Creatinin Ratio (0-0.19) Urine Total Protein mg/dL RPR Screen (Non Reactive) Hepatitis A IgM Ab Pending Hep Bs Antigen Pending Hep B Core IgM Ab Pending Hep C Ab Index (LISANDRO) Pending Hep C Ab Interp LISANDRO Pending Hepatitis Interpret Pending Blood Type Antibody Screen Crossmatch (AHG) 01/22/24 01/22/24 01/22/24 Range/Units 13:58 08:28 06:08 WBC 17.33 H 17.29 H (4.50-11.00) K/uL RBC 3.71 L 3.88 L (4.00-5.20) m/uL Hgb 11.0 L 11.4 L 10.8 L (12.0-16.0) gm/dL Hct 33.0 34.8 (33.0-51.0) % MCV 89 90 (80-100) fL MCH 30 29 (26-34) pg MCHC 33 33 (32-36) gm/dL RDW Coeff of Shelia (11.5-15.5) % Plt Count 282 275 367 (140-440) K/uL Neut % (Auto) (42.0-72.0) % Lymph % (Auto) (20-44) % Nicholas % (Auto) (0.0-11.0) % Eos % (Auto) (0.0-7.0) % Baso % (Auto) (0.0-3.0) % Neut # (Auto) (1.7-7.0) K/uL Lymph # (Auto) (0.90-2.90) K/uL Nicholas # (Auto) (0.00-0.90) K/UL Eos # (Auto) (0.00-0.50) K/uL Baso # (Auto) (0.00-0.30) K/uL Abs Immat Gran (auto) (0.00-0.30) K/uL Imm/Tot Granulo (auto) % INR 1.00 (0.91-1.10) APTT 28 (23-33) Seconds Fibrinogen 594 H (200-450) mg/dL Sodium (135-149) mmol/L Potassium (3.6-5.1) mmol/L Chloride (96-114) mmol/L Carbon Dioxide (20-32) mmol/L Anion Gap (7-15) mEq/L BUN 8 8 (5-24) mg/dL Creatinine 0.4 L 0.4 L 0.5 (0.5-1.5) mg/dL Estimated Creat Clear 196.83 196.83 157.46 Estimated GFR 143 143 135 ml/min Glucose (60-115) mg/dL Haptoglobin Calcium (8.4-10.6) mg/dL Magnesium 4.6 H* (1.5-2.6) mg/dL Total Bilirubin (0.1-1.5) mg/dL AST 51 H 45 H 52 H (12-35) U/L ALT 35 30 38 H (4-35) U/L Alkaline Phosphatase (40-150) U/L Lactate Dehydrogenase (120-246) U/L Total Protein (6.0-8.3) g/dL Albumin (3.3-5.0) g/dL Urine Creatinine mg/dL Protein/Creatinin Ratio (0-0.19) Urine Total Protein mg/dL RPR Screen (Non Reactive) Hepatitis A IgM Ab Hep Bs Antigen Hep B Core IgM Ab Hep C Ab Index (LISANDRO) Hep C Ab Interp LISANDRO Hepatitis Interpret Blood Type Antibody Screen Crossmatch (AHG) See Detail 01/22/24 01/21/24 01/21/24 Range/Units 02:00 20:02 14:03 WBC 20.62 H 16.47 H 13.71 H (4.50-11.00) K/uL RBC 4.11 4.26 4.26 (4.00-5.20) m/uL Hgb 12.1 12.6 12.6 (12.0-16.0) gm/dL Hct 37.1 38.6 38.2 (33.0-51.0) % MCV 90 91 90 (80-100) fL MCH 29 30 30 (26-34) pg MCHC 33 33 33 (32-36) gm/dL RDW Coeff of Shelia (11.5-15.5) % Plt Count 383 353 355 (140-440) K/uL Neut % (Auto) (42.0-72.0) % Lymph % (Auto) (20-44) % Nicholas % (Auto) (0.0-11.0) % Eos % (Auto) (0.0-7.0) % Baso % (Auto) (0.0-3.0) % Neut # (Auto) (1.7-7.0) K/uL Lymph # (Auto) (0.90-2.90) K/uL Nicholas # (Auto) (0.00-0.90) K/UL Eos # (Auto) (0.00-0.50) K/uL Baso # (Auto) (0.00-0.30) K/uL Abs Immat Gran (auto) (0.00-0.30) K/uL Imm/Tot Granulo (auto) % INR (0.91-1.10) APTT (23-33) Seconds Fibrinogen (200-450) mg/dL Sodium (135-149) mmol/L Potassium (3.6-5.1) mmol/L Chloride (96-114) mmol/L Carbon Dioxide (20-32) mmol/L Anion Gap (7-15) mEq/L BUN 8 8 9 (5-24) mg/dL Creatinine 0.5 0.4 L 0.4 L (0.5-1.5) mg/dL Estimated Creat Clear 157.46 196.83 196.83 Estimated GFR 135 143 143 ml/min Glucose (60-115) mg/dL Haptoglobin Calcium (8.4-10.6) mg/dL Magnesium 5.0 H* 5.2 H* 4.7 H* (1.5-2.6) mg/dL Total Bilirubin (0.1-1.5) mg/dL AST 60 H 67 H 64 H (12-35) U/L ALT 43 H 45 H 47 H (4-35) U/L Alkaline Phosphatase (40-150) U/L Lactate Dehydrogenase (120-246) U/L Total Protein (6.0-8.3) g/dL Albumin (3.3-5.0) g/dL Urine Creatinine mg/dL Protein/Creatinin Ratio (0-0.19) Urine Total Protein mg/dL RPR Screen (Non Reactive) Hepatitis A IgM Ab Hep Bs Antigen Hep B Core IgM Ab Hep C Ab Index (LISANDRO) Hep C Ab Interp LISANDRO Hepatitis Interpret Blood Type Antibody Screen Crossmatch (AHG) 01/21/24 01/20/24 01/20/24 Range/Units 05:39 18:00 17:21 WBC 10.68 (4.50-11.00) K/uL RBC 4.11 (4.00-5.20) m/uL Hgb 12.3 (12.0-16.0) gm/dL Hct 37.2 (33.0-51.0) % MCV 91 (80-100) fL MCH 30 (26-34) pg MCHC 33 (32-36) gm/dL RDW Coeff of Shelia (11.5-15.5) % Plt Count 309 Cancelled (140-440) K/uL Neut % (Auto) 54.3 (42.0-72.0) % Lymph % (Auto) 39.2 (20-44) % Nicholas % (Auto) 4.4 (0.0-11.0) % Eos % (Auto) 1.3 (0.0-7.0) % Baso % (Auto) 0.4 (0.0-3.0) % Neut # (Auto) 5.70 (1.7-7.0) K/uL Lymph # (Auto) 4.11 H (0.90-2.90) K/uL Nicholas # (Auto) 0.50 (0.00-0.90) K/UL Eos # (Auto) 0.14 (0.00-0.50) K/uL Baso # (Auto) 0.04 (0.00-0.30) K/uL Abs Immat Gran (auto) 0.04 (0.00-0.30) K/uL Imm/Tot Granulo (auto) 0.4 % INR (0.91-1.10) APTT (23-33) Seconds Fibrinogen (200-450) mg/dL Sodium (135-149) mmol/L Potassium (3.6-5.1) mmol/L Chloride (96-114) mmol/L Carbon Dioxide (20-32) mmol/L Anion Gap (7-15) mEq/L BUN 12 12 (5-24) mg/dL Creatinine 0.4 L 0.4 L (0.5-1.5) mg/dL Estimated Creat Clear 196.83 196.83 Estimated GFR 143 143 ml/min Glucose (60-115) mg/dL Haptoglobin Calcium (8.4-10.6) mg/dL Magnesium (1.5-2.6) mg/dL Total Bilirubin (0.1-1.5) mg/dL AST 60 H 73 H (12-35) U/L ALT 46 H 44 H (4-35) U/L Alkaline Phosphatase (40-150) U/L Lactate Dehydrogenase (120-246) U/L Total Protein (6.0-8.3) g/dL Albumin (3.3-5.0) g/dL Urine Creatinine 110.7 mg/dL Protein/Creatinin Ratio 0.08 (0-0.19) Urine Total Protein 9 mg/dL RPR Screen Non Reactive (Non Reactive) Hepatitis A IgM Ab Hep Bs Antigen Hep B Core IgM Ab Hep C Ab Index (LISANDRO) Hep C Ab Interp LISANDRO Hepatitis Interpret Blood Type B Positive Antibody Screen NEGATIVE Crossmatch (AHG) 01/20/24 01/20/24 01/20/24 Range/Units 17:21 17:21 17:21 WBC (4.50-11.00) K/uL RBC (4.00-5.20) m/uL Hgb (12.0-16.0) gm/dL Hct (33.0-51.0) % MCV Cancelled (80-100) fL MCH Cancelled 29 (26-34) pg MCHC Cancelled 33 (32-36) gm/dL RDW Coeff of Shelia 13.7 (11.5-15.5) % Plt Count 330 (140-440) K/uL Neut % (Auto) (42.0-72.0) % Lymph % (Auto) (20-44) % Nicholas % (Auto) (0.0-11.0) % Eos % (Auto) (0.0-7.0) % Baso % (Auto) (0.0-3.0) % Neut # (Auto) (1.7-7.0) K/uL Lymph # (Auto) (0.90-2.90) K/uL Nicholas # (Auto) (0.00-0.90) K/UL Eos # (Auto) (0.00-0.50) K/uL Baso # (Auto) (0.00-0.30) K/uL Abs Immat Gran (auto) (0.00-0.30) K/uL Imm/Tot Granulo (auto) % INR (0.91-1.10) APTT (23-33) Seconds Fibrinogen (200-450) mg/dL Sodium (135-149) mmol/L Potassium (3.6-5.1) mmol/L Chloride (96-114) mmol/L Carbon Dioxide (20-32) mmol/L Anion Gap (7-15) mEq/L BUN (5-24) mg/dL Creatinine (0.5-1.5) mg/dL Estimated Creat Clear Estimated GFR ml/min Glucose (60-115) mg/dL Haptoglobin Calcium (8.4-10.6) mg/dL Magnesium (1.5-2.6) mg/dL Total Bilirubin (0.1-1.5) mg/dL AST (12-35) U/L ALT (4-35) U/L Alkaline Phosphatase (40-150) U/L Lactate Dehydrogenase (120-246) U/L Total Protein (6.0-8.3) g/dL Albumin (3.3-5.0) g/dL Urine Creatinine mg/dL Protein/Creatinin Ratio (0-0.19) Urine Total Protein mg/dL RPR Screen (Non Reactive) Hepatitis A IgM Ab Hep Bs Antigen Hep B Core IgM Ab Hep C Ab Index (LISANDRO) Hep C Ab Interp LISANDRO Hepatitis Interpret Blood Type Antibody Screen Crossmatch (AHG) 01/20/24 01/20/24 01/20/24 Range/Units 17:21 17:21 17:21 WBC (4.50-11.00) K/uL RBC Cancelled (4.00-5.20) m/uL Hgb Cancelled 11.4 L (12.0-16.0) gm/dL Hct Cancelled 35.1 (33.0-51.0) % MCV 91 (80-100) fL MCH (26-34) pg MCHC (32-36) gm/dL RDW Coeff of Shelia (11.5-15.5) % Plt Count (140-440) K/uL Neut % (Auto) (42.0-72.0) % Lymph % (Auto) (20-44) % Nicholas % (Auto) (0.0-11.0) % Eos % (Auto) (0.0-7.0) % Baso % (Auto) (0.0-3.0) % Neut # (Auto) (1.7-7.0) K/uL Lymph # (Auto) (0.90-2.90) K/uL Nicholas # (Auto) (0.00-0.90) K/UL Eos # (Auto) (0.00-0.50) K/uL Baso # (Auto) (0.00-0.30) K/uL Abs Immat Gran (auto) (0.00-0.30) K/uL Imm/Tot Granulo (auto) % INR (0.91-1.10) APTT (23-33) Seconds Fibrinogen (200-450) mg/dL Sodium (135-149) mmol/L Potassium (3.6-5.1) mmol/L Chloride (96-114) mmol/L Carbon Dioxide (20-32) mmol/L Anion Gap (7-15) mEq/L BUN (5-24) mg/dL Creatinine (0.5-1.5) mg/dL Estimated Creat Clear Estimated GFR ml/min Glucose (60-115) mg/dL Haptoglobin Calcium (8.4-10.6) mg/dL Magnesium (1.5-2.6) mg/dL Total Bilirubin (0.1-1.5) mg/dL AST (12-35) U/L ALT (4-35) U/L Alkaline Phosphatase (40-150) U/L Lactate Dehydrogenase (120-246) U/L Total Protein (6.0-8.3) g/dL Albumin (3.3-5.0) g/dL Urine Creatinine mg/dL Protein/Creatinin Ratio (0-0.19) Urine Total Protein mg/dL RPR Screen (Non Reactive) Hepatitis A IgM Ab Hep Bs Antigen Hep B Core IgM Ab Hep C Ab Index (LISANDRO) Hep C Ab Interp ILSANDRO Hepatitis Interpret Blood Type Antibody Screen Crossmatch (AHG) 01/20/24 01/20/24 Range/Units 17:21 17:21 WBC Cancelled 10.49 (4.50-11.00) K/uL RBC 3.88 L (4.00-5.20) m/uL Hgb (12.0-16.0) gm/dL Hct (33.0-51.0) % MCV (80-100) fL MCH (26-34) pg MCHC (32-36) gm/dL RDW Coeff of Shelia (11.5-15.5) % Plt Count (140-440) K/uL Neut % (Auto) (42.0-72.0) % Lymph % (Auto) (20-44) % Nicholas % (Auto) (0.0-11.0) % Eos % (Auto) (0.0-7.0) % Baso % (Auto) (0.0-3.0) % Neut # (Auto) (1.7-7.0) K/uL Lymph # (Auto) (0.90-2.90) K/uL Nicholas # (Auto) (0.00-0.90) K/UL Eos # (Auto) (0.00-0.50) K/uL Baso # (Auto) (0.00-0.30) K/uL Abs Immat Gran (auto) (0.00-0.30) K/uL Imm/Tot Granulo (auto) % INR (0.91-1.10) APTT (23-33) Seconds Fibrinogen (200-450) mg/dL Sodium (135-149) mmol/L Potassium (3.6-5.1) mmol/L Chloride (96-114) mmol/L Carbon Dioxide (20-32) mmol/L Anion Gap (7-15) mEq/L BUN (5-24) mg/dL Creatinine (0.5-1.5) mg/dL Estimated Creat Clear Estimated GFR ml/min Glucose (60-115) mg/dL Haptoglobin Calcium (8.4-10.6) mg/dL Magnesium (1.5-2.6) mg/dL Total Bilirubin (0.1-1.5) mg/dL AST (12-35) U/L ALT (4-35) U/L Alkaline Phosphatase (40-150) U/L Lactate Dehydrogenase (120-246) U/L Total Protein (6.0-8.3) g/dL Albumin (3.3-5.0) g/dL Urine Creatinine mg/dL Protein/Creatinin Ratio (0-0.19) Urine Total Protein mg/dL RPR Screen (Non Reactive) Hepatitis A IgM Ab Hep Bs Antigen Hep B Core IgM Ab Hep C Ab Index (LISANDRO) Hep C Ab Interp LISANDRO Hepatitis Interpret Blood Type Antibody Screen Crossmatch (AHG) Ultrasound Ultrasound Impression: Liver Ultrasound 01/23 Liver: The liver is increased in size measuring 20.5 cm in length. Diffusely increased echogenicity consistent with steatosis. No significant nodular hepatic contour. No focal liver lesions identified. Gallbladder: No stones or sludge. No wall thickening or pericholecystic fluid. Patient is mildly tender with palpation over the right upper quadrant. Bile ducts: The common bile duct measures 3 mm in diameter. Pancreas: Normal where seen. Right kidney: The right kidney measures 12.7 cm in length. No hydronephrosis, calculus, or mass. Vascular: Normal caliber abdominal aorta. The IVC appears patent. The main portal vein is patent with normal flow direction. IMPRESSION: 1. Hepatomegaly and hepatic steatosis without focal hepatic lesions. 2. No sonographic evidence of cholelithiasis. Assessment and Plan Assessment and plan (1) with 39 completed weeks gestation: Problem comment: complicated by chronic hypertension and baseline elevation of AST/ALT with fatty liver. S/p 01/21/2024. Second degree laceration. Intrapartum developed preeclampsia with severe features by severe range blood pressures. Delayed hemorrhage. Now with rising LFTs and LDH. Status: Acute Assessment and Plan: - routine cares. Continue ibuprofen and tylenol prn for pain management. Will favor ibuprofen given her increasing LFTs. - ongoing breast feeding support, may benefit from consultation. Baby has teeth, having some difficulty with latching. Milk in. Has been pumping some as well Transfer to: [place] (2) Elevated LFTs: Problem comment: Baseline moderate fatty liver disease. ALT early 79, AST 53. Unfortunately, AST 01/23 was 226, significantly higher than last check. Developed RUQ pain. Discussed with Perinatology, recommend viral serologies and monitoring q12 hours until improving. Did not recommend restarting magnesium. I talked to Dr. Back from [facility] who encouraged ongoing monitoring (evening 01/23). Ultrasound showed new hepatomegaly and persistent hepatic steatosis. Liver enzymes continue to raise, now AST 493 and ALT 212. INR 0.89. I have discussed with perinatology several times. Was accepted for transfer evening of 01/24 to [facility], but no staffing was available and transfer was delayed to AM of 01/25. Labs improved briefly am of 01/25, so transfer was cancelled. Unfortunately, labs worsened again this afternoon. Discussed again with perinatology, recommended transfer to tertiary care center for GI consultation and ongoing management given persistent transaminitis >300. Status: Acute Assessment and Plan: - Has been accepted by Perinatology Dr. Monterroso and Hospitalist Dr. Avery for direct admission at [facility] for ongoing monitoring and evaluation by gastroenterology. Appreciate their assistance with this kat patient. Mode of transport: [facility] Transfer to: [place] (3) Severe pre-eclampsia: Problem comment: Completed IV magnesium for severe range blood pressures. Liver enzymes increased above baseline on 01/23, continuing to rise. AST now 493, ALT 212. Blood pressures controlled with TID labetalol and patient has had appropriate diuresis. Status: Acute (4) hemorrhage: Problem comment: Delayed PPH morning of 01/21. Thought d/t retained placenta. S/p suction D&C. QBL was 2075. Did receive 2 units of PRBC per massive transfusion protocol. Hemoglobin on admission was 12.6. Now to 9.4. Bleeding has been appropriate since D&C. Status: Acute (5) Chronic hypertension affecting : Problem comment: cHTN, on labetalol 50mg BID on admission with elevated AST/ALT in early (ultrasound during showed fatty liver). Titrated labetalol to 200 mg TID. Blood pressures overnight appropriate (110s /70s) Status: Acute Assessment and Plan: - continue labetalol 200 mg q8h (6) Uterine tenderness: Problem comment: Patient had mild uterine tenderness 01/23. No fevers. Vitals stable. Patient is high risk for endometritis given her D&C, retained placenta. Received ancef intraoperatively. Urine culture was normal. Status: Acute Assessment and Plan: - continue to monitor for endometritis. If febrile, have low threshold to start abx. (7) Back pain: Problem comment: Back pain started overnight 01/24. Given heating pad which improved all pain. No pain on assessment 11/30 am. Most likely musculoskeletal. Status: Acute Assessment and Plan: - ongoing monitoring of back pain - encouraged appropriate positioning while breast feeding. Plan - Transfer to [facility] for gastroenterology consultation and care with perinatology available. - I have discussed with both patient and family members. They are in agreement with plan. Total time spent Total time spent: 120 minutes
[2024-01-26 15:15] VITALS: BP 135/73; PULSE 95; RESP 16; TEMP 36.9; O2SAT 100
[2024-01-26 19:17] LABS: Hep A Ab, IgM Negative (Negative); Hep B Core Ab, IgM Negative (Negative); Hep B Surface Antigen Negative (Negative); Hep C Ab by CIA Index 0.12 IV; Hep C Ab by CIA Interp Negative (Negative)
[2024-01-28 23:44] LABS: Haptoglobin 162 mg/dL (30-200)
== END 2024-01-26 15:38 | disposition short-term general hospital (02) | DRG 541 ==
PROVIDERS: Family Medicine; Obstetrics & Gynecology; Surgery; Admitting Provider Student in an Organized Health Care Education/Training Program; PCP Family Medicine; Visit Provider Family Medicine
PROC: 10D17ZZ Extraction of Products of Conception, Retained, Via Natural or Artificial Opening (ICD-10-PCS; principal; 2024-01-22 06:50)
DX: O10.92 Unspecified pre-existing hypertension complicating childbirth (principal); O14.14 Severe pre-eclampsia complicating childbirth; O72.0 Third-stage hemorrhage; O72.2 Delayed and secondary postpartum hemorrhage; O90.81 Anemia of the puerperium; D62 Acute posthemorrhagic anemia; O70.1 Second degree perineal laceration during delivery; O92.79 Other disorders of lactation; N94.89 Other specified conditions associated with female genital organs and menstrual cycle; R74.01 Elevation of levels of liver transaminase levels; M54.9 Dorsalgia, unspecified; O99.893 Other specified diseases and conditions complicating puerperium; R10.11 Right upper quadrant pain; R16.0 Hepatomegaly, not elsewhere classified; K76.0 Fatty (change of) liver, not elsewhere classified; Z3A.39 39 weeks gestation of pregnancy; Z37.0 Single live birth
CPT/HCPCS: 00940; 01967; 36415; 36430; 59200; 76705; 80053; 80074; 82565; 82570; 83010; 83615; 83735; 84156; 84450; 84460; 84520; 85018; 85025; 85027; 85049; 85384; 85610; 85730; 86592; 86850; 86900; 86901; 86922; 87086; 88305; 88307; 99140; A9270; J0330; J2003; J2371; J2405; J2704; J2795; J3010; J3475; J7030; J7120; P9016

== ENCOUNTER 2024-01-26 15:30 | Outpatient (CLI) | payer BC, SELFPAY | END 2024-01-26 15:31 | disposition home or self-care (01) | LOC: AMB 01-27 03:59 | PROVIDERS: PCP Family Medicine; Visit Provider Family Medicine | DX: R74.8 Abnormal levels of other serum enzymes (principal); O72.1 Other immediate postpartum hemorrhage | CPT/HCPCS: A0425; A0427 ==

== ENCOUNTER 2024-02-01 14:03 | Outpatient (CLI) | payer BC, SELFPAY ==
--- NOTE | 2024-02-01 15:41 | P.LACCB_ITS ---
Consult Note - Mom Date of Visit Date of visit: 02/01/24 Reason for consultation: Assistance Needed and Breast/Nipple Issue Visit Code: Visit Patient's Information Phone number: [phone] : 1 Para: 1 Allergies No Known Allergies Allergy (Verified 01/20/24 16:48) Mother's medical history: Post hemorrhage Mother's Medical History: Medical History (Updated 01/26/24 @ 13:53 by Eunice Howell MD) Vaginal delivery ?O80 - Encounter for full-term uncomplicated delivery (ICD-10) Hepatic steatosis ?K76.0 - Fatty (change of) liver, not elsewhere classified (ICD-10) Chronic hypertension ?I10 - Essential (primary) hypertension (ICD-10) Delivery Information Delivery type: Vaginal Gestational Age: 39+2 Gestational Weight For Age: AGA Weight: 3.38 kg Discharge Weight: 3.262 kg Percentage weight loss: 3.5 Past Experience Past Experience: No Current Frequency of Day Feedings: very 1-1.5 hours Frequency of Night Feedings: every 2-2.5 hours Both Breasts: Yes Suck: strong, sometimes bites when he's first latching Latch: can be good or pinchy and painful Length of Time: 15 min ea side most feedings Goals: at least 6 mos, would like to bottle EBM from the day at night to get sleep Pumping Pumping: Yes Quantity Pumped: got 2.5 oz today after first feeding Supplementing EBM Supplement: No Formula Supplement: No Baby Elimination Number of Wet Diapers a Day: ea feeding Number of BM a Day: 3-4 larger ones, plus 3-4 smaller squirts, yellow/seedy Breast/Nipple Condition Breast Information: Breasts are symmetrical with rounded lower quadrants, intramammary distance is less than 1.5 inches. No erythema. Nipples are supple, everted prior to feeding. Breast Shape: Round Engorgement: No Maternal Nipple Condition - Left: Common Nipple Maternal Nipple Condition - Right: Common Nipple Sore Nipples: Yes (slight, getting better) Interventions for Sore Nipples: Lansinoh/Nipple Cream and Soothies/Hydrogel Pads Baby Assessment Skin: Normal Tongue/frenulum: Normal/elastic Palate: Average Lips: Relaxed and Symmetrical Jaw Alignment: Symmetrical Mucosa: [place], moist Onsite Observation Pre-Feed weight: 3.454 kg Post-Feed weight: 3.524 kg Milk Transferred (mL): 70 Position: Cradle and Cross cradle Attachment/latch-on achieved: Easily Suck pattern: Suck burst and normal rest Swallow: Audible, consistent Behavior following feed: Relaxed, sleepy Pre-Nursing Left Nipple: Within Normal Limits Pre-Nursing Right Nipple: Within Normal Limits Post-Nursing Left Nipple: Within Normal Limits Post-Nursing Right Nipple: Within Normal Limits Assessments/Interventions Assessments/Interventions: Worked with mom/taught and reviewed latch technique for a wide, deep latch when baby has wide open mouth and mom reports increased comfort with this. Mom prefers cradle hold; discussed may need to start in cross cradle for quick deep latch and then shift hand position to cradle hold after baby in suckling rhythm. Also reviewed keeping baby in neutral position with ear, shoulder and hip in nice straight line; baby was trying to latch with neck tilted laterally; once he was straightened out he latched more easily and more comfortable per mom. Discussed normals of ; milk coming in, regulation of supply, use of pump to relieve fullness if needed, but not to pump every feeding if not needed to prevent over supply. Nipple care reviewed as well. Education provided: Early feeding cues to maximize timing of latching, Asymmetric latch technique for wide/deep latch to increase milk (discussed jessica nging baby onto breast quickly when he has his mouth open wide to help prevent the biting), Transfer for baby and increase comfort for mom, Supply/demand nature of milk supply (discussed skipping night feedings can compromise milk supply overall), Need for frequent stimulation/milk removal and Milk collection, storage Follow-Up Suggested follow up: Appointment as needed Time Spent Time spent with patient (min): 75 (time with patient, partner and baby) Meds Home Medications and Allergies Home Medications ?Medication ?Instructions ?Recorded ?Confirmed ?Type cholecalciferol (vitamin D3) 25 1,000 unit PO DAILY 10/26/23 01/20/24 History mcg (1,000 unit) capsule vit 168-iron 27 mg-folic 1 cap PO DAILY 10/26/23 01/25/24 History acid 800 mcg-omega3 235 mg capsule (One-A-Day -1) Allergies Allergy/AdvReac Type Severity Reaction Status Date / Time No Known Allergies Allergy Verified 01/20/24 16:48
== END 2024-02-01 14:04 | disposition home or self-care (01) ==
LOC: OB LAC 14:04
PROVIDERS: PCP Family Medicine; Visit Provider Family Medicine
DX: Z39.1 Encounter for care and examination of lactating mother (principal)
CPT/HCPCS: G0463

== ENCOUNTER 2024-02-11 10:59 | Outpatient (CLI) | payer BC, SELFPAY ==
--- NOTE | 2024-02-11 12:24 | W.PM.LAC.MF ---
Follow-Up Note: Mom Date of visit Date of visit: 02/11/24 Reason for consultation: Breast/Nipple Issue Visit Code: Visit Patient's Information Allergies No Known Allergies Allergy (Verified 01/20/24 16:48) Delivery Information Weight: 3.38 kg Last Weight: 3.454 kg (02/01/24) Baby's Information Baby's name: London Baby's Age at Visit: 21 days Baby's Provider or Clinic: [facility] Current Frequency of Day Feedings: every 2 hours day and night Both Breasts: Yes (sometimes; mom is sore so occas just one side) Suck: strong, rhythmic Latch: not sure, still having nipple pain L>R Length of Time: 10-15 minutes on 1st, 5-10 on 2nd if does both sides Pumping Pumping: Yes (2-3 times/day; one time for storage, other 1-2 for bottles due to soreness) Quantity Pumped: 3-4 oz; Supplementing EBM Supplement: No Formula Supplement: No Baby Elimination Number of Wet Diapers a Day: ea feeding Number of BM a Day: 6 or more Breast/Nipple Assessment Breast/Nipple Assessment: Breasts are symmetrical with rounded lower quadrants, intramammary distance is less than 1.5 inches. No erythema. Nipples are supple, everted prior to feeding. Breast Shape: Round Engorgement: No Maternal Nipple Condition - Left: Common Nipple Maternal Nipple Condition - Right: Common Nipple Sore Nipples: Yes Interventions for Sore Nipples: Lansinoh/Nipple Cream and Soothies/Hydrogel Pads (stopped using as they were more irritating) Onsite Observation Pre-feed weight: 3.886 kg (432gm gain in 10 days) Post-Feed weight: 3.946 kg Milk Transferred (mL): 60 Pre-Nursing Left Nipple: Within Normal Limits Pre-Nursing Right Nipple: Within Normal Limits Post-Nursing Left Nipple: Within Normal Limits Post-Nursing Right Nipple: Within Normal Limits Assessments/Interventions Assessments/Interventions: Worked with mom on positioning to get a deeper latch. She was able to do independently after discussing elements; she thinks using the [place] pillow makes a difference in having baby at right level for more easy latching. She noted zero pain with initial latch; after about 10 minutes of nursing she started c/o pain. Baby was noted to have relaxed and was laying down more in her arms and thus pulling her breast down with him and therefore pulling on her nipple more. We adjusted his position with her arms and a blanket tucked under his shoulder and she reports the pain lessened. Discussed options of how to create this space for her at home. Discussed her pumping routine and need to be careful to not create an oversupply with extra pumping. Education provided: Asymmetric latch technique for wide/deep latch to increase milk, Transfer for baby and increase comfort for mom, Supply/demand nature of milk supply and Sore nipple treatment options (recommend breast shells during the healing process) Follow-Up Suggested follow up: Appointment as needed Time Spent Time spent with patient (min): 65 Meds Home Medications and Allergies Home Medications ?Medication ?Instructions ?Recorded ?Confirmed ?Type cholecalciferol (vitamin D3) 25 1,000 unit PO DAILY 10/26/23 01/20/24 History mcg (1,000 unit) capsule vit 168-iron 27 mg-folic 1 cap PO DAILY 10/26/23 01/25/24 History acid 800 mcg-omega3 235 mg capsule (One-A-Day -1) Allergies Allergy/AdvReac Type Severity Reaction Status Date / Time No Known Allergies Allergy Verified 01/20/24 16:48
== END 2024-02-11 11:00 | disposition home or self-care (01) ==
LOC: OB LAC 11:01
PROVIDERS: PCP Family Medicine; Visit Provider Obstetrics & Gynecology
DX: Z39.1 Encounter for care and examination of lactating mother (principal)
CPT/HCPCS: G0463

== ENCOUNTER 2024-03-07 09:37 | Outpatient (CLI) | payer BC, SELFPAY ==
--- NOTE | 2024-03-07 12:15 | W.PM.LAC.MF ---
Follow-Up Note: Mom Date of visit Date of visit: 03/07/24 Reason for consultation: Breast/Nipple Issue (plugged milk duct treatment, latch questions) Visit Code: Visit Patient's Information Allergies No Known Allergies Allergy (Verified 01/20/24 16:48) Baby's Information Baby's name: London Baby's Age at Visit: 6 weeks Current Frequency of Day Feedings: every 2-2.5 hours Frequency of Night Feedings: starting to go 3 hours at night Both Breasts: Yes Suck: strong Latch: working on deeper latch Length of Time: 10-15 min on first side, then 5-15 min on 2nd side Pumping Pumping: Yes (1 time/day after morning feeding) Quantity Pumped: about 4 oz; left side makes a bit more than right side Supplementing EBM Supplement: No Formula Supplement: No Baby Elimination Number of Wet Diapers a Day: ea feeding Number of BM a Day: 5-6 or more/day Breast/Nipple Assessment Breast/Nipple Assessment: Breasts are symmetrical with rounded lower quadrants, intramammary distance is less than 1.5 inches. No erythema. Nipples are supple, everted prior to feeding. Left breast with slight palpable hardened area at approx 4 o'clock position Breast Shape: Round Engorgement: No Interventions for Engorgement: Warm Pack Maternal Nipple Condition - Left: Common Nipple and Cracking/ Fissures Maternal Nipple Condition - Right: Common Nipple Sore Nipples: Yes Interventions for Sore Nipples: Lansinoh/Nipple Cream and Breast Shells Onsite Observation Pre-Nursing Left Nipple: Crusting/Scabs Pre-Nursing Right Nipple: Within Normal Limits Post-Nursing Left Nipple: Crusting/Scabs (scabs present but nipple rounded when she finishes nursing) Post-Nursing Right Nipple: Creased/Beveled (was slightly creased after a few minutes of nursing; shifted latch and more rounded after nursing) Assessments/Interventions Assessments/Interventions: Malathi started with what felt like a plugged duct on 03/03 morning; she was seen by OB and this was verified. Slight redness to the breast, but no fever so decided not mastitis. Her left nipple is also cracked and having a hard time healing this week. She was seen again yesterday and feels the plugged duct is getting better. Wants to discuss further treatment and future prevention strategies. Discussion centered around plugged ducts, mastitis and feeding/pumping routine. Mom has been starting feedings on the left breast all week to help reduce the plugged area; discussed this can be helpful but can also lead to increased milk on affected breast thereby increasing risk of plugged ducts. Recommend she resume starting on the opposite side now that acute element of plugged duct has passed. Breast gymnastics and breast lymphatic massage may be helpful in moving milk and fluid from the breast to decrease swelling. Warm pack prior to nursing and cool packs after nursing may help decrease inflammation. Prior to nursing or pumping, gentle breast massage from nipple toward plugged duct to open up duct and allow milk to flow. Given cracked nipple scabbed area and filmy coating mom sometimes sees on nipple - recommend cleansing once a day with a mild cleanser like Cetaphil to remove film and allow healing. Mom concerned she's not getting enough to drink; discussed measures to help increase her fluid intake (water bottle by her when feeding baby, in car when driving) Discussed Liquid IV, LMNT, coconut water, Body Armor to help increase fluids as well If she starts getting repeated plugged ducts, discussed role of [place] lecithin for management if needed. Education provided: Supply/demand nature of milk supply, Sore nipple treatment options and Pumping for milk management Follow-Up Suggested follow up: Appointment as needed Time Spent Time spent with patient (min): 55 (time spent with patient and baby) Meds Home Medications and Allergies Home Medications ?Medication ?Instructions ?Recorded ?Confirmed ?Type cholecalciferol (vitamin D3) 25 1,000 unit PO DAILY 10/26/23 01/20/24 History mcg (1,000 unit) capsule vit 168-iron 27 mg-folic 1 cap PO DAILY 10/26/23 01/25/24 History acid 800 mcg-omega3 235 mg capsule (One-A-Day -1) Allergies Allergy/AdvReac Type Severity Reaction Status Date / Time No Known Allergies Allergy Verified 01/20/24 16:48
== END 2024-03-07 09:38 | disposition home or self-care (01) ==
LOC: OB LAC 09:39
PROVIDERS: PCP Family Medicine; Visit Provider Obstetrics & Gynecology
DX: Z39.1 Encounter for care and examination of lactating mother (principal)
CPT/HCPCS: G0463